=== PATIENT | male | born 1940 | race Caucasian/White ===

== ENCOUNTER 2019-01-15 16:22 | Inpatient (IN) | payer MEDICARE, BC ==
[2019-01-15] MEDS ORDERED: methylPREDNISolone Sodium Succinate 125 MG/2 ML SDV IVPUSH ONE (16:34)
[2019-01-15] MEDS ORDERED: Albuterol/Ipratropium 3.0-0.5 MG/3 ML Neb Soln NEB ONE (16:34)
[2019-01-15] MEDS ORDERED: Albuterol/Ipratropium 3.0-0.5 MG/3 ML Neb Soln ONE (16:37)
[2019-01-15] MEDS: Sodium Chloride 0.9% 10 ML Syringe FLUSH PRN ×2 (16:48→18:57)
[2019-01-15] MEDS ORDERED: Levofloxacin/Dextrose 5%-Water 750 MG in Premix Bag 1 BAG IV ONE (17:03)
[2019-01-15 17:07] LABS: ANION GAP 17.7; CHLORIDE,CL 100 mmol/L (101-111); SODIUM,NA 136 mmol/L (135-145)
--- NOTE | 2019-01-15 17:33 | EDM.PDOC ---
"Scribed by Julisa Contreras 01/15/19 1721 for Rebekah Roblero MD ED HPI GENERAL MEDICAL PROBLEM - General Chief Complaint: Respiratory Problem Stated Complaint: HARD TO BREATH AND EAT ON OXYGEN Time Seen by Provider: 01/15/19 16:34 Source of Information: Reports: Patient, RN, RN Notes Reviewed History Limitations: Reports: No Limitations - History of Present Illness INITIAL COMMENTS - FREE TEXT/NARRATIVE: Patient arrives to ER by POV with several days progressively worsening shortness of breath. He has history of COPD, home oxygen dependent. This afternoon he has become dyspneic. Denies fever, chills, chest pain or edema. Patient states his nebulizer treatments have not been helping today as usual. Onset: Gradual Duration: Getting Worse Location: Reports: Chest Quality: Reports: Ache Severity: Moderate Improves with: Reports: None Worsens with: Reports: None Associated Symptoms: Reports: No Other Symptoms - Related Data Allergies Allergy/AdvReac Type Severity Reaction Status Date / Time No Known Allergies Allergy Verified 01/15/19 17:07 Home Meds: Home Meds Albuterol [Proventil Neb Soln] 2.5 mg NEB Q4HR PRN 07/29/15 [History] Budesonide [Pulmicort] 0.5 mg NEB BID 07/29/15 [History] Folic Acid 1 mg PO DAILY 07/29/15 [History] Formoterol [Perforomist] 20 mcg NEB BID 07/29/15 [History] Roflumilast [Daliresp] 250 mcg PO DAILY 07/29/15 [History] Tiotropium [Spiriva HandiHaler] 18 mcg INH DAILY 07/29/15 [History] Ascorbate Calcium [Vitamin C] 500 mg PO DAILY 07/30/15 [History] Methotrexate 2.5 mg PO WEEKLY 07/30/15 [History] ED ROS GENERAL - Review of Systems Review Of Systems: Comprehensive ROS is negative, except as noted in HPI. ED EXAM, GENERAL - Physical Exam Exam: See Below Exam Limited By: No Limitations General Appearance: Alert, Anxious, Moderate Distress, Obese, Other ( chronically ill but nontoxic appearing) Eye Exam: Bilateral Eye: Normal Inspection Nose: Normal Inspection, Normal Mucosa, No Blood Throat/Mouth: Normal Inspection, Normal Lips, Normal Teeth, Normal Gums, Normal Oropharynx, Normal Voice, No Airway Compromise Head: Atraumatic, Normocephalic Neck: Normal Inspection, Supple, Non-Tender, Full Range of Motion Respiratory/Chest: Respiratory Distress (mild), Decreased Breath Sounds, Crackles, Wheezing, Accessory Muscle Use, Prolonged Expiration Cardiovascular: Regular Rate, Rhythm, No Edema, Tachycardia GI/Abdominal: Normal Bowel Sounds, Soft, Non-Tender, No Organomegaly, No Distention, No Abnormal Bruit, No Mass Back Exam: Normal Inspection Extremities: Normal Inspection, Normal Range of Motion, Non-Tender, Normal Capillary Refill, No Pedal Edema Neurological: Alert, Oriented, CN II-XII Intact, Normal Cognition, Normal Reflexes, No Motor/Sensory Deficits Psychiatric: Anxious Skin Exam: Warm, Dry, Intact, Normal Color, No Rash EKG INTERPRETATION EKG Date: 01/15/19 Time: 17:13 Rhythm: Other (sinus tachycardia) Rate (Beats/Min): 112 [place]: Normal P-Wave: Present QRS: Other (borderline repolarization abnormality) ST-T: Normal QT: Normal Comparison: NA - No Prior EKG Course - Vital Signs Last Recorded V/S: Last Vital Signs Temp 97.4 F 01/15/19 16:30 Pulse 115 H 01/15/19 16:30 Resp 38 H 01/15/19 16:30 BP 153/67 H 01/15/19 16:30 Pulse Ox 83 L 01/15/19 16:30 - Orders/Labs/Meds Orders: Active Orders 24 hr Category Date Time Status EKG 12 Lead [EKG Documentation Completion] [RC] STAT Care 01/15/19 16:37 Active Peripheral IV Care [RC] . DIRECTED Care 01/15/19 16:37 Active RT Aerosol Therapy [RC] ASDIRECTED Care 01/15/19 16:34 Active RT BiPAP/CPAP [RC] ASDIRECTED Care 01/15/19 16:36 Active Chest 1V Frontal [CR] Stat Exams 01/15/19 16:37 Taken ABG [BLOOD GAS ARTERIAL] [BG] Stat Lab 01/15/19 16:36 Ordered CULTURE BLOOD [BC] Stat Lab 01/15/19 16:38 Results CULTURE BLOOD [BC] Stat Lab 01/15/19 17:06 Received UA RFX TARIQ AND CULT IF INDIC [URIN] Stat Lab 01/15/19 16:37 Ordered Levofloxacin/Dextrose 5%-Water [Levaquin in D5W 750 MG/ Med 01/15/19 17:03 Active 150 ML] 750 mg Premix Bag 1 bag IV ONETIME Sodium Chloride 0.9% [Saline Flush] Med 01/15/19 16:37 Active 10 ml FLUSH ASDIRECTED PRN Blood Culture x2 Reflex Set [OM.PC] Stat Oth 01/15/19 16:37 Ordered Peripheral IV Insertion Adult [OM.PC] Stat Oth 01/15/19 16:37 Ordered Medication Orders Levofloxacin/Dextrose 750 mg/ (Premix) 150 mls @ 100 mls/hr IV ONETIME ONE Stop: 01/15/19 18:32 Last Admin: 01/15/19 17:26 Dose: 100 mls/hr Sodium Chloride (Saline Flush) 10 ml FLUSH ASDIRECTED PRN PRN Reason: Keep Vein Open Last Admin: 01/15/19 16:48 Dose: 10 ml Labs: Laboratory Tests 01/15/19 01/15/19 01/15/19 Range/Units 16:38 16:38 16:38 WBC 11.7 H (5.0-10.0) 10^3/uL RBC 4.03 L (4.6-6.2) 10^6/uL Hgb 13.3 L (14.0-18.0) g/dL Hct 39.9 L (40.0-54.0) % MCV 99.0 (80-100) fL MCH 33.0 (27.0-34.0) pg MCHC 33.3 (33.0-35.0) g/dL Plt Count 234 (150-450) 10^3/uL Neut % (Auto) 88.5 H (42.2-75.2) % Lymph % (Auto) 5.2 L (20.5-50.1) % [place] % (Auto) 6.0 (2-8) % Eos % (Auto) 0.1 L (1.0-3.0) % Baso % (Auto) 0.2 (0.0-1.0) % Sodium 136 (135-145) mmol/L Potassium 3.7 (3.6-5.0) mmol/L Chloride 100 L (101-111) mmol/L Carbon Dioxide 22.0 (21.0-31.0) mmol/L Anion Gap 17.7 BUN 14 (7-18) mg/dL Creatinine 1.0 (0.6-1.3) mg/dL Est Cr Clr Drug Dosing 50.58 mL/min Estimated GFR (MDRD) > 60 BUN/Creatinine Ratio 14.00 Glucose 129 H (74-105) mg/dL Lactic Acid 1.8 (0.5-2.2) mmol/L Calcium 9.2 (8.4-10.2) mg/dl Total Bilirubin 1.4 H (0.2-1.0) mg/dL AST 33 (10-42) IU/L ALT 33 (10-60) IU/L Alkaline Phosphatase 100 (42-121) IU/L Troponin I < 0.02 (0.00-0.02) ng/ml B-Natriuretic Peptide 40 (0-100) pg/ml Total Protein 8.4 H (6.7-8.2) g/dl Albumin 3.9 (3.2-5.5) g/dl Globulin 4.5 Albumin/Globulin Ratio 0.87 Meds: Medications Generic Name Dose Route Start Last Admin Trade Name Freq PRN Reason Stop Dose Admin Levofloxacin/Dextrose 750 mg/ 150 mls @ 100 mls/hr 01/15/19 17:03 01/15/19 17 :26 Premix IV 01/15/19 18:32 100 mls/hr ONETIME ONE Administration Sodium Chloride 10 ml 01/15/19 16:37 01/15/19 16:48 Saline Flush FLUSH 10 ml ASDIRECTED PRN Administration Keep Vein Open Discontinued Medications Generic Name Dose Route Start Last Admin Trade Name Freq PRN Reason Stop Dose Admin Albuterol/Ipratropium 3 ml 01/15/19 16:34 01/15/19 16:48 Duoneb 3.0-0.5 Mg/3 Ml NEB 01/15/19 16:35 3 ml ONETIME ONE Administration Albuterol/Ipratropium Confirm 01/15/19 16:37 01/15/19 16:48 Duoneb 3.0-0.5 Mg/3 Ml Administered 01/15/19 16:38 Not Given Dose 3 ml .ROUTE .STK-MED ONE Methylprednisolone Sodium Succinate 125 mg 01/15/19 16:34 01/15/19 16:48 Solu-Medrol IVPUSH 01/15/19 16:35 125 mg ONETIME ONE Administration - Radiology Interpretation Free Text/Narrative:: [facility] [place] [facility] Final Radiology Report Call: [phone] assistance Online chat: [email or web address] Name: LYNN KESSLER Age: 78Years M Date: 01/15/2019 SSN: -- : [id number] Study: XR CHEST 1 VIEW FRONTAL Requesting Physician: REBEKAH ROBLERO Images: 1 Addl Studies: Provided Clinical History: Contrast: Contrast Medium: Contrast Amount: Contrast Method: Page 1 of 2 PROCEDURE INFORMATION: Exam: XR Chest, 1 View Exam date and time: 01/15/2019 4:54 PM Age: 78 years old Clinical history: Dyspnea TECHNIQUE: Imaging protocol: XR of the chest Views: 1 view. COMPARISON: No relevant prior studies available. FINDINGS: Lungs: Normal pulmonary expansion. Pulmonary vasculature grossly normal. Alveolar opacities are identified in the medial right lung base and in the lingula of the left upper lobe, consistent with multifocal infiltrate versus atelectasis. Mild hyperexpansion and apical hyperlucency suspicious for COPD. Pleural space: No pleural effusion. No pneumothorax. Heart/Mediastinum: Heart size normal. No tracheal/mediastinal shift. Vasculature: Mild aortic ectasia. Bones/joints: No acute osseous abnormalities are identified. IMPRESSION: 1. Alveolar opacities in the medial right lung base and in the left upper lobe lingula concerning for multifocal infiltrate versus atelectasis. 2. Suspect underlying COPD. Thank you for allowing us to participate in the care of your patient. LYNN KESSLER | Final Radiology Report CONFIDENTIALITY STATEMENT This report is intended only for use by the referring physician, and only in accordance with law. If you received this in error, call [phone]. Page 2 of 2 Dictated and Authenticated by: Ilya Lin MD 01/15/2019 5:18 PM Central Time ([place] & [place]) Departure - Departure Time of Disposition: 17:32 (admitted to Dr. Flores) Disposition: Admitted As Inpatient 68 Condition: Fair, Serious Clinical Impression: Acute exacerbation of chronic obstructive pulmonary disease (COPD) Pneumonia Qualifiers: Pneumonia type: due to unspecified organism Laterality: bilateral Lung location : unspecified part of lung Qualified Code(s): J18.9 - Pneumonia, unspecified organism Acute on chronic respiratory failure Qualifiers: Respiratory failure complication: hypoxia Qualified Code(s): J96.21 - Acute and chronic respiratory failure with hypoxia - Discharge Information *PRESCRIPTION DRUG MONITORING PROGRAM REVIEWED*: Not Applicable *COPY OF PRESCRIPTION DRUG MONITORING REPORT IN PATIENT DIANE: Not Applicable Forms: ED Department Discharge - My Orders Last 24 Hours: My Active Orders 01/15/19 16:34 RT Aerosol Therapy [RC] ASDIRECTED 01/15/19 16:36 RT BiPAP/CPAP [RC] ASDIRECTED ABG [BLOOD GAS ARTERIAL] [BG] Stat 01/15/19 16:37 EKG 12 Lead [EKG Documentation Completion] [RC] STAT Peripheral IV Care [RC] . DIRECTED Chest 1V Frontal [CR] Stat UA RFX TARIQ AND CULT IF INDIC [URIN] Stat Sodium Chloride 0.9% [Saline Flush] 10 ml FLUSH ASDIRECTED PRN Blood Culture x2 Reflex Set [OM.PC] Stat Peripheral IV Insertion Adult [OM.PC] Stat 01/15/19 16:38 CULTURE BLOOD [BC] Stat 01/15/19 17:03 Levofloxacin/Dextrose 5%-Water [Levaquin in D5W 750 MG/150 ML] 750 mg Premix Bag 1 bag IV ONETIME 01/15/19 17:06 CULTURE BLOOD [BC] Stat - Assessment/Plan Last 24 Hours: My Active Orders 01/15/19 16:34 RT Aerosol Therapy [RC] ASDIRECTED 01/15/19 16:36 RT BiPAP/CPAP [RC] ASDIRECTED ABG [BLOOD GAS ARTERIAL] [BG] Stat 01/15/19 16:37 EKG 12 Lead [EKG Documentation Completion] [RC] STAT Peripheral IV Care [RC] . DIRECTED Chest 1V Frontal [CR] Stat UA RFX TARIQ AND CULT IF INDIC [URIN] Stat Sodium Chloride 0.9% [Saline Flush] 10 ml FLUSH ASDIRECTED PRN Blood Culture x2 Reflex Set [OM.PC] Stat Peripheral IV Insertion Adult [OM.PC] Stat 01/15/19 16:38 CULTURE BLOOD [BC] Stat 01/15/19 17:03 Levofloxacin/Dextrose 5%-Water [Levaquin in D5W 750 MG/150 ML] 750 mg Premix Bag 1 bag IV ONETIME 01/15/19 17:06 CULTURE BLOOD [BC] Stat I have read and agree with the documentation that has been completed regarding this visit. By signing this record, I attest that the documentation was completed in my physical presence and is an accurate record of the encounter."
[2019-01-15 17:35] LABS: BASE EXCESS ARTERIAL -1 mmol/L ((-2)-(+3)); BICARBONATE,ARTERIAL 21.9 mmol/L (22-26); O2 DELIVERY DEVICE BIPAP; O2 SATURATION ARTERIAL 99 % (95-100); PCO2 ARTERIAL 33 mmHg (35-45); PO2 ARTERIAL 109 mmHg (70-100)
[2019-01-15] MEDS ORDERED: Docusate Sodium 100 MG Cap PO PRN (18:22)
[2019-01-15] MEDS ORDERED: Ondansetron 4 MG Tab.DIS PO PRN (18:22)
--- NOTE | 2019-01-15 18:33 | PCM.HP ---
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 He presented with increasing shortness of breath associated with fever, nonproductive cough started 2 days prior to admission. No chest pain. No abdominal pain. No leg swelling. - Related Data Allergies/Adverse Reactions: Allergies Allergy/AdvReac Type Severity Reaction Status Date / Time No Known Allergies Allergy Verified 01/15/19 17:07 Home Medications: Home Meds Albuterol [Proventil Neb Soln] 2.5 mg NEB Q4HR PRN 07/29/15 [History] Budesonide [Pulmicort] 0.5 mg NEB BID 07/29/15 [History] Formoterol [Perforomist] 20 mcg NEB BID 07/29/15 [History] Ascorbate Calcium [Vitamin C] 500 mg PO DAILY 07/30/15 [History] Methotrexate 2.5 mg PO WEEKLY 07/30/15 [History] Albuterol [Ventolin HFA] 2 puff .XX Q4H 01/15/19 [History] Finasteride [Proscar] 5 mg PO .SUPPER 01/15/19 [History] Tamsulosin [Tamsulosin 24 Hr] 0.4 mg PO .SUPPER 01/15/19 [History] Umeclidinium [place] [Incruse Ellipta*] 1 puff INH DAILY 01/15/19 [History] Zinc Gluconate [Zinc] 50 mg PO DAILY 01/15/19 [History] Past Medical History Respiratory History: Reports: COPD Social & Family History - Tobacco Use Smoking Status *Q: Former Smoker Used Tobacco, but Quit: Yes Month/Year Tobacco Last Used: 2008 H&P Review of Systems - Review of Systems: Review Of Systems: See Below General: Reports: Fever, Chills, Malaise, Weakness Pulmonary: Reports: Shortness of Breath, Wheezing, Cough. Denies: Pleuritic Chest Pain, Sputum, Hemoptysis Cardiovascular: Denies: Chest Pain, Edema Gastrointestinal: Denies: Abdominal Pain Psychiatric: Denies: Confusion Exam - Exam Exam: See Below - Vital Signs Vital Signs: Last Vital Signs Temp 38.5 C H 01/15/19 18:06 Pulse 116 H 01/15/19 18:06 Resp 36 H 01/15/19 18:06 BP 156/66 H 01/15/19 18:06 Pulse Ox 99 01/15/19 18:06 Weight: 80.104 kg - Exam General: Alert, Oriented Neck: Supple Lungs: Wheezing. No: Normal Respiratory Effort (Increased respiratory rate) Cardiovascular: Regular Rate, Regular Rhythm GI/Abdominal Exam: Normal Bowel Sounds, Soft, Non-Tender Extremities: No Pedal Edema Skin: Warm Neurological: Cranial Nerves Intact Neuro Extensive - Mental Status: Alert, Oriented x3, Normal Mood/Affect - Patient Data Lab Results Last 24 hrs: Laboratory Results - last 24 hr 01/15/19 01/15/19 01/15/19 Range/Units 16:38 16:38 16:38 WBC 11.7 H (5.0-10.0) 10^3/uL RBC 4.03 L (4.6-6.2) 10^6/uL Hgb 13.3 L (14.0-18.0) g/dL Hct 39.9 L (40.0-54.0) % MCV 99.0 (80-100) fL MCH 33.0 (27.0-34.0) pg MCHC 33.3 (33.0-35.0) g/dL Plt Count 234 (150-450) 10^3/uL Neut % (Auto) 88.5 H (42.2-75.2) % Lymph % (Auto) 5.2 L (20.5-50.1) % [place] % (Auto) 6.0 (2-8) % Eos % (Auto) 0.1 L (1.0-3.0) % Baso % (Auto) 0.2 (0.0-1.0) % ABG pH (7.35-7.45) ABG pCO2 (35-45) mmHg ABG pO2 (70-100) mmHg ABG HCO3 (22-26) mmol/L ABG O2 Saturation (95-100) % ABG Base Excess ((-2)-(+3)) mmol/L O2 Delivery Device Sodium 136 (135-145) mmol/L Potassium 3.7 (3.6-5.0) mmol/L Chloride 100 L (101-111) mmol/L Carbon Dioxide 22.0 (21.0-31.0) mmol/L Anion Gap 17.7 BUN 14 (7-18) mg/dL Creatinine 1.0 (0.6-1.3) mg/dL Est Cr Clr Drug Dosing 50.58 mL/min Estimated GFR (MDRD) > 60 BUN/Creatinine Ratio 14.00 Glucose 129 H (74-105) mg/dL Lactic Acid 1.8 (0.5-2.2) mmol/L Calcium 9.2 (8.4-10.2) mg/dl Total Bilirubin 1.4 H (0.2-1.0) mg/dL AST 33 (10-42) IU/L ALT 33 (10-60) IU/L Alkaline Phosphatase 100 (42-121) IU/L Troponin I < 0.02 (0.00-0.02) ng/ml B-Natriuretic Peptide 40 (0-100) pg/ml Total Protein 8.4 H (6.7-8.2) g/dl Albumin 3.9 (3.2-5.5) g/dl Globulin 4.5 Albumin/Globulin Ratio 0.87 01/15/19 Range/Units 17:30 WBC (5.0-10.0) 10^3/uL RBC (4.6-6.2) 10^6/uL Hgb (14.0-18.0) g/dL Hct (40.0-54.0) % MCV (80-100) fL MCH (27.0-34.0) pg MCHC (33.0-35.0) g/dL Plt Count (150-450) 10^3/uL Neut % (Auto) (42.2-75.2) % Lymph % (Auto) (20.5-50.1) % [place] % (Auto) (2-8) % Eos % (Auto) (1.0-3.0) % Baso % (Auto) (0.0-1.0) % ABG pH 7.43 (7.35-7.45) ABG pCO2 33 L (35-45) mmHg ABG pO2 109 H (70-100) mmHg ABG HCO3 21.9 L (22-26) mmol/L ABG O2 Saturation 99 (95-100) % ABG Base Excess -1 ((-2)-(+3)) mmol/L O2 Delivery Device Bipap Sodium (135-145) mmol/L Potassium (3.6-5.0) mmol/L Chloride (101-111) mmol/L Carbon Dioxide (21.0-31.0) mmol/L Anion Gap BUN (7-18) mg/dL Creatinine (0.6-1.3) mg/dL Est Cr Clr Drug Dosing mL/min Estimated GFR (MDRD) BUN/Creatinine Ratio Glucose (74-105) mg/dL Lactic Acid (0.5-2.2) mmol/L Calcium (8.4-10.2) mg/dl Total Bilirubin (0.2-1.0) mg/dL AST (10-42) IU/L ALT (10-60) IU/L Alkaline Phosphatase (42-121) IU/L Troponin I (0.00-0.02) ng/ml B-Natriuretic Peptide (0-100) pg/ml Total Protein (6.7-8.2) g/dl Albumin (3.2-5.5) g/dl Globulin Albumin/Globulin Ratio Result Diagrams: 01/15/19 16:38 01/15/19 16:38 Dave Results Last 24 hrs: Microbiology 01/15/19 16:38 Anaerobic Blood Culture - Final Blood - Venous - Problem List (1) Acute exacerbation of chronic obstructive pulmonary disease (COPD) SNOMED Code(s): 758315037 ICD Code: J44.1 - CHRONIC OBSTRUCTIVE PULMONARY DISEASE W (ACUTE) EXACERBATION Status: Acute Current Visit: No (2) Acute on chronic respiratory failure SNOMED Code(s): 34089011 ICD Code: J96.20 - ACUTE AND CHR RESP FAILURE, UNSP W HYPOXIA OR HYPERCAPNIA Status: Acute Current Visit: No Qualifiers: Respiratory failure complication: hypoxia Qualified Code(s): J96.21 - Acute and chronic respiratory failure with hypoxia (3) Pneumonia SNOMED Code(s): 869406333 ICD Code: J18.9 - PNEUMONIA, UNSPECIFIED ORGANISM Status: Acute Current Visit: No Qualifiers: Pneumonia type: due to unspecified organism Laterality: bilateral Lung location: unspecified part of lung Qualified Code(s): J18.9 - Pneumonia, unspecified organism Problem List Initiated/Reviewed/Updated: Yes Orders Last 24hrs: Active Orders 24 hr Category Date Time Status Admission Diagnosis [ADT] Routine ADT 01/15/19 17:31 Ordered Admission Status [Patient Status] [ADT] Routine ADT 01/15/19 17:31 Active Antiembolic Devices [RC] PER UNIT ROUTINE Care 01/15/19 18:23 Ordered EKG 12 Lead [EKG Documentation Completion] [RC] STAT Care 01/15/19 16:37 Active Oxygen Therapy [RC] PRN Care 01/15/19 18:22 Ordered Peripheral IV Care [RC] . DIRECTED Care 01/15/19 16:37 Active RT Aerosol Therapy [RC] ASDIRECTED Care 01/15/19 16:34 Active RT Aerosol Therapy [RC] ASDIRECTED Care 01/15/19 18:16 Ordered RT Aerosol Therapy [RC] ASDIRECTED Care 01/15/19 18:19 Ordered RT Aerosol Therapy [RC] ASDIRECTED Care 01/15/19 18:19 Ordered RT BiPAP/CPAP [RC] ASDIRECTED Care 01/15/19 16:36 Active Up With Assistance [RC] ASDIRECTED Care 01/15/19 18:22 Ordered VTE/DVT Education [RC] PER UNIT ROUTINE Care 01/15/19 18:22 Ordered Vital Signs [RC] Q4H Care 01/15/19 18:22 Ordered Regular Diet [DIET] Diet 01/15/19 Breakfast Ordered Chest 1V Frontal [CR] Stat Exams 01/15/19 16:37 Taken BASIC METABOLIC PANEL,BMP [CHEM] AM Lab 01/16/19 05:15 Ordered CBC WITH AUTO DIFF [HEME] AM Lab 01/16/19 05:15 Ordered CULTURE BLOOD [BC] Stat Lab 01/15/19 16:38 Results CULTURE BLOOD [BC] Stat Lab 01/15/19 17:06 Received CULTURE SPUTUM + SMEAR [RM] Routine Lab 01/15/19 18:15 Ordered UA RFX DAVE AND CULT IF INDIC [URIN] Stat Lab 01/15/19 16:37 Ordered Acetaminophen [Tylenol] Med 01/15/19 18:22 Ordered 650 mg PO Q4H PRN Albuterol/Ipratropium [DuoNeb 3.0-0.5 MG/3 ML] Med 01/15/19 18:16 Ordered 3 ml NEB Q2H PRN Albuterol/Ipratropium [DuoNeb 3.0-0.5 MG/3 ML] Med 01/16/19 01:00 Ordered 3 ml NEB Q6HRRT Budesonide [Pulmicort] Med 01/16/19 07:00 Ordered 0.5 mg NEB BIDRT Docusate Sodium [Colace] Med 01/15/19 18:22 Ordered 100 mg PO BID PRN Folic Acid Med 01/16/19 09:00 Ordered 1 mg PO DAILY Heparin Sodium Med 01/15/19 22:00 Ordered 5,000 units SUBCUT Q8HR Levofloxacin/Dextrose 5%-Water [Levaquin in D5W 750 MG/ Med 01/15/19 17:03 Active 150 ML] 750 mg Premix Bag 1 bag IV ONETIME Levofloxacin/Dextrose 5%-Water [Levaquin in D5W 750 MG/ Med 01/16/19 16:00 Ordered 150 ML] 750 mg Premix Bag 1 bag IV Q24H Ondansetron [Zofran ODT] Med 01/15/19 18:22 Ordered 4 mg PO Q4H PRN Roflumilast [Daliresp] Med 01/16/19 09:00 Ordered 250 mcg PO DAILY Sodium Chloride 0.9% [Saline Flush] Med 01/15/19 16:37 Active 10 ml FLUSH ASDIRECTED PRN Sodium Chloride 0.9% [Saline Flush] Med 01/15/19 18:22 Ordered 10 ml FLUSH ASDIRECTED PRN Zolpidem [Ambien] Med 01/15/19 18:22 Ordered 5 mg PO BEDTIME PRN methylPREDNISolone Sod Succ [Solu-MEDROL] Med 01/15/19 22:00 Ordered 40 mg IVPUSH Q8H Antiembolic Hose [OM.PC] Per Unit Routine Oth 01/15/19 18:22 Ordered Blood Culture x2 Reflex Set [OM.PC] Stat Oth 01/15/19 16:37 Ordered Peripheral IV Insertion Adult [OM.PC] Stat Oth 01/15/19 16:37 Ordered Saline Lock Insert [OM.PC] Routine Oth 01/15/19 18:22 Ordered Resuscitation Status Routine Resus Stat 01/15/19 18:22 Ordered Medication Orders Acetaminophen (Tylenol) 650 mg PO Q4H PRN PRN Reason: Pain (Mild 1-3)/fever Albuterol/Ipratropium (Duoneb 3.0-0.5 Mg/3 Ml) 3 ml NEB Q2H PRN PRN Reason: sob Albuterol/Ipratropium (Duoneb 3.0-0.5 Mg/3 Ml) 3 ml NEB Q6HRRT ANNA Budesonide (Pulmicort) 0.5 mg NEB BIDRT ANNA Docusate Sodium (Colace) 100 mg PO BID PRN PRN Reason: Constipation Folic Acid (Folic Acid) 1 mg PO DAILY ANNA Heparin Sodium (Porcine) (Heparin Sodium) 5,000 units SUBCUT Q8HR ANNA Levofloxacin/Dextrose 750 mg/ (Premix) 150 mls @ 100 mls/hr IV ONETIME ONE Stop: 01/15/19 18:32 Last Admin: 01/15/19 17:26 Dose: 100 mls/hr Levofloxacin/Dextrose 750 mg/ (Premix) 150 mls @ 100 mls/hr IV Q24H ANNA Methylprednisolone Sodium Succinate (Solu-Medrol) 40 mg IVPUSH Q8H [facility] Non-Formulary Medication (Roflumilast [Daliresp]) 250 mcg PO DAILY ANNA Ondansetron HCl (Zofran Odt) 4 mg PO Q4H PRN PRN Reason: nausea, able to take PO Sodium Chloride (Saline Flush) 10 ml FLUSH ASDIRECTED PRN PRN Reason: Keep Vein Open Last Admin: 01/15/19 16:48 Dose: 10 ml Sodium Chloride (Saline Flush) 10 ml FLUSH ASDIRECTED PRN PRN Reason: Keep Vein Open Zolpidem Tartrate (Ambien) 5 mg PO BEDTIME PRN PRN Reason: Sleep Assessment/Plan Comment:: 78-year-old gentleman with a history of COPD, home oxygen use at night. Presented with fever, increasing shortness of breath. Acute on chronic hypoxemic respiratory failure On presentation to the emergency room the patient was hypoxemic, started on BiPAP. ABG showed no CO2 retention Oxygen saturation improved We'll try to wean off to nasal cannula oxygen Supplement oxygen as needed Acute COPD exacerbation We'll treat with IV Solu-Medrol and Pulmicort DuoNeb scheduled and as needed Acute community-acquired pneumonia Obtain sputum culture Blood culture obtained Treat empirically with levofloxacin DVT prophylaxis with subcutaneous heparin
[2019-01-15] MEDS: Tamsulosin 0.4 MG Cap.ER PO SCH (19:05)
[2019-01-15] MEDS: Finasteride 5 MG Tab PO SCH (19:08)
[2019-01-15] MEDS: Heparin Sodium 5,000 Units/ML Vial SUBCUT SCH (21:46)
[2019-01-15] MEDS: TOFACITINIB CITRATE 11 MG PO SCH (23:16)
[2019-01-16] MEDS: methylPREDNISolone Sodium Succinate 40 MG/1 ML SDV IVPUSH SCH ×3 (00:16→17:19)
[2019-01-16] MEDS: Albuterol/Ipratropium 3.0-0.5 MG/3 ML Neb Soln NEB SCH ×4 (00:17→18:06)
[2019-01-16] MEDS: Heparin Sodium 5,000 Units/ML Vial SUBCUT SCH ×3 (05:54→22:08)
[2019-01-16 06:50] LABS: ANION GAP 15.1; CHLORIDE,CL 101 mmol/L (101-111); SODIUM,NA 137 mmol/L (135-145)
[2019-01-16] MEDS: Budesonide 0.5 MG/2 ML Neb Susp NEB SCH ×2 (07:20→18:07)
[2019-01-16] MEDS ORDERED: Patient's Own Medication 1 Each PO SCH (09:00)
[2019-01-16] MEDS: Folic Acid 1 MG Tab PO SCH (09:22)
--- NOTE | 2019-01-16 10:25 | PCM.PN ---
- General Info Date of Service: 01/16/19 Admission Dx/Problem (Free Text): Admission Diagnosis/Problem Admission Diagnosis/Problem Exacerbation of chronic obstructive pulmonary disease Subjective Update: Has remained on BiPAP. Feels the breathing is better. Was able to take off the BiPAP for breakfast. No associated chest pain. Symptoms started 2- 3 days prior to admission. No abdominal pain. Functional Status: Reports: Tolerating Diet - Review of Systems General: Denies: Fever Pulmonary: Reports: Shortness of Breath (Improved), Wheezing Cardiovascular: Denies: Chest Pain, Edema Psychiatric: Denies: Confusion - Patient Data Vitals - Most Recent: Last Vital Signs Temp 36.9 C 01/16/19 08:23 Pulse 80 01/16/19 08:23 Resp 20 01/16/19 08:23 BP 136/76 01/16/19 08:23 Pulse Ox 100 01/16/19 08:23 Weight - Most Recent: 78.29 kg I&O - Last 24 Hours: Intake & Output 01/15/19 01/16/19 01/16/19 22:59 06:59 14:59 Intake Total 780 Output Total 300 Balance 780 -300 Lab Results Last 24 Hours: Laboratory Results - last 24 hr 01/15/19 01/15/19 01/15/19 Range/Units 16:38 16:38 16:38 WBC 11.7 H (5.0-10.0) 10^3/uL RBC 4.03 L (4.6-6.2) 10^6/uL Hgb 13.3 L (14.0-18.0) g/dL Hct 39.9 L (40.0-54.0) % MCV 99.0 (80-100) fL MCH 33.0 (27.0-34.0) pg MCHC 33.3 (33.0-35.0) g/dL Plt Count 234 (150-450) 10^3/uL Neut % (Auto) 88.5 H (42.2-75.2) % Lymph % (Auto) 5.2 L (20.5-50.1) % [place] % (Auto) 6.0 (2-8) % Eos % (Auto) 0.1 L (1.0-3.0) % Baso % (Auto) 0.2 (0.0-1.0) % ABG pH (7.35-7.45) ABG pCO2 (35-45) mmHg ABG pO2 (70-100) mmHg ABG HCO3 (22-26) mmol/L ABG O2 Saturation (95-100) % ABG Base Excess ((-2)-(+3)) mmol/L O2 Delivery Device Sodium 136 (135-145) mmol/L Potassium 3.7 (3.6-5.0) mmol/L Chloride 100 L (101-111) mmol/L Carbon Dioxide 22.0 (21.0-31.0) mmol/L Anion Gap 17.7 BUN 14 (7-18) mg/dL Creatinine 1.0 (0.6-1.3) mg/dL Est Cr Clr Drug Dosing 50.58 mL/min Estimated GFR (MDRD) > 60 BUN/Creatinine Ratio 14.00 Glucose 129 H (74-105) mg/dL Lactic Acid 1.8 (0.5-2.2) mmol/L Calcium 9.2 (8.4-10.2) mg/dl Total Bilirubin 1.4 H (0.2-1.0) mg/dL AST 33 (10-42) IU/L ALT 33 (10-60) IU/L Alkaline Phosphatase 100 (42-121) IU/L Troponin I < 0.02 (0.00-0.02) ng/ml B-Natriuretic Peptide 40 (0-100) pg/ml Total Protein 8.4 H (6.7-8.2) g/dl Albumin 3.9 (3.2-5.5) g/dl Globulin 4.5 Albumin/Globulin Ratio 0.87 Urine Color (YELLOW) Urine Appearance (CLEAR) Urine pH (5.0-9.0) Ur Specific [place] (1.005-1.030) Urine Protein (NEGATIVE) Urine Glucose (UA) (NEGATIVE) Urine Ketones (NEGATIVE) Urine Occult Blood (NEGATIVE) Urine Nitrite (NEGATIVE) Urine Bilirubin (NEGATIVE) Urine Urobilinogen (0.2-1.0) mg/dL Ur Leukocyte Esterase (NEGATIVE) Urine RBC /HPF Urine WBC (0-5/HPF) /HPF Ur Epithelial Cells (NOT SEEN) /HPF Amorphous Sediment (NOT SEEN) /HPF Urine Bacteria (0-FEW/HPF) /HPF Granular Casts (NOT SEEN) /LPF Urine Mucus (NOT SEEN) /LPF 12/08/19 12/08/19 12/09/19 Range/Units 17:30 23:20 05:28 WBC 9.7 (5.0-10.0) 10^3/uL RBC 3.85 L (4.6-6.2) 10^6/uL Hgb 12.6 L (14.0-18.0) g/dL Hct 38.4 L (40.0-54.0) % MCV 99.7 (80-100) fL MCH 32.7 (27.0-34.0) pg MCHC 32.8 L (33.0-35.0) g/dL Plt Count 252 (150-450) 10^3/uL Neut % (Auto) 88.6 H (42.2-75.2) % Lymph % (Auto) 9.0 L (20.5-50.1) % [place] % (Auto) 2.3 (2-8) % Eos % (Auto) 0.0 L (1.0-3.0) % Baso % (Auto) 0.1 (0.0-1.0) % ABG pH 7.43 (7.35-7.45) ABG pCO2 33 L (35-45) mmHg ABG pO2 109 H (70-100) mmHg ABG HCO3 21.9 L (22-26) mmol/L ABG O2 Saturation 99 (95-100) % ABG Base Excess -1 ((-2)-(+3)) mmol/L O2 Delivery Device Bipap Sodium (135-145) mmol/L Potassium (3.6-5.0) mmol/L Chloride (101-111) mmol/L Carbon Dioxide (21.0-31.0) mmol/L Anion Gap BUN (7-18) mg/dL Creatinine (0.6-1.3) mg/dL Est Cr Clr Drug Dosing mL/min Estimated GFR (MDRD) BUN/Creatinine Ratio Glucose (74-105) mg/dL Lactic Acid (0.5-2.2) mmol/L Calcium (8.4-10.2) mg/dl Total Bilirubin (0.2-1.0) mg/dL AST (10-42) IU/L ALT (10-60) IU/L Alkaline Phosphatase (42-121) IU/L Troponin I (0.00-0.02) ng/ml B-Natriuretic Peptide (0-100) pg/ml Total Protein (6.7-8.2) g/dl Albumin (3.2-5.5) g/dl Globulin Albumin/Globulin Ratio Urine Color Yellow (YELLOW) Urine Appearance Clear (CLEAR) Urine pH 5.5 (5.0-9.0) Ur Specific [place] 1.020 (1.005-1.030) Urine Protein 100 H (NEGATIVE) Urine Glucose (UA) Negative (NEGATIVE) Urine Ketones 15 H (NEGATIVE) Urine Occult Blood Negative (NEGATIVE) Urine Nitrite Negative (NEGATIVE) Urine Bilirubin Negative (NEGATIVE) Urine Urobilinogen 1.0 (0.2-1.0) mg/dL Ur Leukocyte Esterase Negative (NEGATIVE) Urine RBC 0-5 /HPF Urine WBC 0-5 (0-5/HPF) /HPF Ur Epithelial Cells Occasional (NOT SEEN) /HPF Amorphous Sediment Few (NOT SEEN) /HPF Urine Bacteria Moderate H (0-FEW/HPF) /HPF Granular Casts Occasional (NOT SEEN) /LPF Urine Mucus Few H (NOT SEEN) /LPF 01/16/19 Range/Units 05:28 WBC (5.0-10.0) 10^3/uL RBC (4.6-6.2) 10^6/uL Hgb (14.0-18.0) g/dL Hct (40.0-54.0) % MCV (80-100) fL MCH (27.0-34.0) pg MCHC (33.0-35.0) g/dL Plt Count (150-450) 10^3/uL Neut % (Auto) (42.2-75.2) % Lymph % (Auto) (20.5-50.1) % [place] % (Auto) (2-8) % Eos % (Auto) (1.0-3.0) % Baso % (Auto) (0.0-1.0) % ABG pH (7.35-7.45) ABG pCO2 (35-45) mmHg ABG pO2 (70-100) mmHg ABG HCO3 (22-26) mmol/L ABG O2 Saturation (95-100) % ABG Base Excess ((-2)-(+3)) mmol/L O2 Delivery Device Sodium 137 (135-145) mmol/L Potassium 4.1 (3.6-5.0) mmol/L Chloride 101 (101-111) mmol/L Carbon Dioxide 25.0 (21.0-31.0) mmol/L Anion Gap 15.1 BUN 17 (7-18) mg/dL Creatinine 1.0 (0.6-1.3) mg/dL Est Cr Clr Drug Dosing 50.58 mL/min Estimated GFR (MDRD) > 60 BUN/Creatinine Ratio Glucose 178 H (74-105) mg/dL Lactic Acid (0.5-2.2) mmol/L Calcium 9.3 (8.4-10.2) mg/dl Total Bilirubin (0.2-1.0) mg/dL AST (10-42) IU/L ALT (10-60) IU/L Alkaline Phosphatase (42-121) IU/L Troponin I (0.00-0.02) ng/ml B-Natriuretic Peptide (0-100) pg/ml Total Protein (6.7-8.2) g/dl Albumin (3.2-5.5) g/dl Globulin Albumin/Globulin Ratio Urine Color (YELLOW) Urine Appearance (CLEAR) Urine pH (5.0-9.0) Ur Specific [place] (1.005-1.030) Urine Protein (NEGATIVE) Urine Glucose (UA) (NEGATIVE) Urine Ketones (NEGATIVE) Urine Occult Blood (NEGATIVE) Urine Nitrite (NEGATIVE) Urine Bilirubin (NEGATIVE) Urine Urobilinogen (0.2-1.0) mg/dL Ur Leukocyte Esterase (NEGATIVE) Urine RBC /HPF Urine WBC (0-5/HPF) /HPF Ur Epithelial Cells (NOT SEEN) /HPF Amorphous Sediment (NOT SEEN) /HPF Urine Bacteria (0-FEW/HPF) /HPF Granular Casts (NOT SEEN) /LPF Urine Mucus (NOT SEEN) /LPF Dave Results Last 24 Hours: Microbiology 01/15/19 16:38 Anaerobic Blood Culture - Final Blood - Venous Med Orders - Current: Current Medications Acetaminophen (Tylenol) 650 mg PO Q4H PRN PRN Reason: Pain (Mild 1-3)/fever Albuterol/Ipratropium (Duoneb 3.0-0.5 Mg/3 Ml) 3 ml NEB Q2H PRN PRN Reason: sob Albuterol/Ipratropium (Duoneb 3.0-0.5 Mg/3 Ml) 3 ml NEB Q6HRRT [facility] Last Admin: 01/16/19 07:20 Dose: 3 ml Budesonide (Pulmicort) 0.5 mg NEB BIDRT [facility] Last Admin: 01/16/19 07:20 Dose: 0.5 mg Docusate Sodium (Colace) 100 mg PO BID PRN PRN Reason: Constipation [facility] Last Admin: 01/15/19 19:08 Dose: 5 mg Folic Acid (Folic Acid) 1 mg PO DAILY [facility] Last Admin: 01/16/19 09:22 Dose: 1 mg Heparin Sodium (Porcine) (Heparin Sodium) 5,000 units SUBCUT Q8HR [facility] Last Admin: 01/16/19 05:54 Dose: 5,000 units Levofloxacin/Dextrose 750 mg/ (Premix) 150 mls @ 100 mls/hr IV Q24H [facility] Methylprednisolone Sodium Succinate (Solu-Medrol) 40 mg IVPUSH Q8H [facility] Last Admin: 01/16/19 09:21 Dose: 40 mg (Roflumilast [ Daliresp] 500 Mcg) *Own Med 500 mcg PO DAILY [facility] Last Admin: 01/16/19 09:58 Dose: 500 mcg (Tofacitinib Citrate [Xeljanz Xr] 11 Mg) Own Med 11 mg PO BEDTIME [facility] Last Admin: 01/15/19 23:16 Dose: 11 mg Ondansetron HCl (Zofran Odt) 4 mg PO Q4H PRN PRN Reason: nausea, able to take PO Patient Own Medication (Ptom) each PO DAILY [facility] Sodium Chloride (Saline Flush) 10 ml FLUSH ASDIRECTED PRN PRN Reason: Keep Vein Open Last Admin: 01/15/19 18:57 Dose: 10 ml Sodium Chloride (Saline Flush) 10 ml FLUSH ASDIRECTED PRN PRN Reason: Keep Vein Open Tamsulosin HCl (Flomax) 0.4 mg PO ACDINNER [facility] Last Admin: 01/15/19 19:05 Dose: 0.4 mg Zolpidem Tartrate (Ambien) 5 mg PO BEDTIME PRN PRN Reason: Sleep Discontinued Medications Albuterol/Ipratropium (Duoneb 3.0-0.5 Mg/3 Ml) 3 ml NEB ONETIME ONE Stop: 01/15/19 16:35 Last Admin: 01/15/19 16:48 Dose: 3 ml Albuterol/Ipratropium (Duoneb 3.0-0.5 Mg/3 Ml) Confirm Administered Dose 3 ml .ROUTE .STK-MED ONE Stop: 01/15/19 16:38 Last Admin: 01/15/19 16:48 Dose: Not Given Levofloxacin/Dextrose 750 mg/ (Premix) 150 mls @ 100 mls/hr IV ONETIME ONE Stop: 01/15/19 18:32 Last Infusion: 01/15/19 18:56 Dose: Infused Methylprednisolone Sodium Succinate (Solu-Medrol) 125 mg IVPUSH ONETIME ONE Stop: 01/15/19 16:35 Last Admin: 01/15/19 16:48 Dose: 125 mg - Exam General: Alert, Oriented Neck: Supple Lungs: Normal Respiratory Effort, Decreased Breath Sounds, Wheezing Cardiovascular: Regular Rate, Regular Rhythm GI/Abdominal Exam: Normal Bowel Sounds, Soft, Non-Tender Extremities: No Pedal Edema Skin: Warm, Dry Psy/Mental Status: Alert, Normal Affect, Normal Mood - Problem List & Annotations (1) Acute exacerbation of chronic obstructive pulmonary disease (COPD) SNOMED Code(s): 369488730 Code(s): J44.1 - CHRONIC OBSTRUCTIVE PULMONARY DISEASE W (ACUTE) EXACERBATION Status: Acute Current Visit: No (2) Acute on chronic respiratory failure SNOMED Code(s): 40998680 Code(s): J96.20 - ACUTE AND CHR RESP FAILURE, UNSP W HYPOXIA OR HYPERCAPNIA Status: Acute Current Visit: No Qualifiers: Respiratory failure complication: hypoxia Qualified Code(s): J96.21 - Acute and chronic respiratory failure with hypoxia (3) Pneumonia SNOMED Code(s): 350123478 Code(s): J18.9 - PNEUMONIA, UNSPECIFIED ORGANISM Status: Acute Current Visit: No Qualifiers: Pneumonia type: due to unspecified organism Laterality: bilateral Lung location: unspecified part of lung Qualified Code(s): J18.9 - Pneumonia, unspecified organism - Problem List Review Problem List Initiated/Reviewed/Updated: Yes - My Orders Last 24 Hours: My Active Orders 01/15/19 18:15 CULTURE SPUTUM + SMEAR [RM] Routine 01/15/19 18:16 RT Aerosol Therapy [RC] ASDIRECTED Albuterol/Ipratropium [DuoNeb 3.0-0.5 MG/3 ML] 3 ml NEB Q2H PRN 01/15/19 18:22 Oxygen Therapy [RC] PRN Up With Assistance [RC] ASDIRECTED VTE/DVT Education [RC] PER UNIT ROUTINE Vital Signs [RC] 00,04,08,12,16,20 Acetaminophen [Tylenol] 650 mg PO Q4H PRN Docusate Sodium [Colace] 100 mg PO BID PRN Ondansetron [Zofran ODT] 4 mg PO Q4H PRN Sodium Chloride 0.9% [Saline Flush] 10 ml FLUSH ASDIRECTED PRN Zolpidem [Ambien] 5 mg PO BEDTIME PRN Antiembolic Hose [OM.PC] Per Unit Routine Saline Lock Insert [OM.PC] Routine Resuscitation Status Routine 01/15/19 18:23 Antiembolic Devices [RC] PER UNIT ROUTINE 01/15/19 18:45 Finasteride [Proscar] 5 mg PO ACDINNER Tamsulosin [Flomax] 0.4 mg PO ACDINNER 01/15/19 22:00 Heparin Sodium 5,000 units SUBCUT Q8HR 01/15/19 23:00 Tofacitinib Citrate [Xeljanz Xr] 11 mg PO BEDTIME 01/15/19 23:20 CULTURE URINE [RM] Routine 01/16/19 00:00 methylPREDNISolone Sod Succ [Solu-MEDROL] 40 mg IVPUSH Q8H 01/16/19 01:00 Albuterol/Ipratropium [DuoNeb 3.0-0.5 MG/3 ML] 3 ml NEB Q6HRRT 01/16/19 07:00 Budesonide [Pulmicort] 0.5 mg NEB BIDRT 01/16/19 09:00 Folic Acid 1 mg PO DAILY Patient's Own Medication [Ptom] DOSE each PO DAILY Roflumilast [Daliresp] 500 mcg PO DAILY 01/16/19 16:00 Levofloxacin/Dextrose 5%-Water [Levaquin in D5W 750 MG/150 ML] 750 mg Premix Bag 1 bag IV Q24H 01/17/19 05:15 BASIC METABOLIC PANEL,BMP [CHEM] AM CBC WITH AUTO DIFF [HEME] AM - Plan Plan:: 78-year-old gentleman with a history of COPD, home oxygen use at night. Presented with fever, increasing shortness of breath. Acute on chronic hypoxemic respiratory failure On presentation to the emergency room the patient was hypoxemic, started on BiPAP. ABG showed no CO2 retention Shortness of breath is improved We'll try to wean BiPAP off to nasal cannula oxygen Supplement oxygen as needed Acute COPD exacerbation treat with IV Solu-Medrol and Pulmicort DuoNeb scheduled and as needed Acute community-acquired pneumonia sputum culture: pending Blood culture: pending Treat empirically with levofloxacin DVT prophylaxis with subcutaneous heparin
[2019-01-16] MEDS: Finasteride 5 MG Tab PO SCH (17:19)
[2019-01-16] MEDS: Tamsulosin 0.4 MG Cap.ER PO SCH (17:19)
[2019-01-16] MEDS: Levofloxacin/Dextrose 5%-Water 750 MG in Premix Bag 1 BAG IV SCH (17:19)
[2019-01-16] MEDS: TOFACITINIB CITRATE 11 MG PO SCH (21:02)
[2019-01-17] MEDS: Albuterol/Ipratropium 3.0-0.5 MG/3 ML Neb Soln NEB SCH ×4 (00:41→18:28)
[2019-01-17] MEDS: methylPREDNISolone Sodium Succinate 40 MG/1 ML SDV IVPUSH SCH ×3 (00:41→16:47)
[2019-01-17] MEDS: Zolpidem 5 MG Tab PO PRN (00:48)
[2019-01-17] MEDS: Heparin Sodium 5,000 Units/ML Vial SUBCUT SCH ×3 (05:42→21:23)
[2019-01-17 06:33] LABS: ANION GAP 14.9; CHLORIDE,CL 102 mmol/L (101-111); SODIUM,NA 137 mmol/L (135-145)
[2019-01-17] MEDS: Budesonide 0.5 MG/2 ML Neb Susp NEB SCH (07:09)
[2019-01-17] MEDS: Calcium Carbonate/Vitamin D3 1250 MG-200 Unit Tab PO SCH (08:59)
[2019-01-17] MEDS: Folic Acid 1 MG Tab PO SCH (08:59)
[2019-01-17] MEDS: Sodium Chloride 0.9% 10 ML Syringe FLUSH PRN (09:02)
--- NOTE | 2019-01-17 11:16 | PCM.PN ---
- General Info Date of Service: 01/17/19 Admission Dx/Problem (Free Text): Admission Diagnosis/Problem Admission Diagnosis/Problem Exacerbation of chronic obstructive pulmonary disease Subjective Update: He was weaned off BiPAP. Feels the breathing is better. sitting up in chair. No associated chest pain. Symptoms started 2- 3 days prior to admission. No abdominal pain. Functional Status: Reports: Pain Controlled - Review of Systems General: Reports: Weakness. Denies: Fever Pulmonary: Reports: Shortness of Breath Cardiovascular: Denies: Chest Pain, Edema Genitourinary: Denies: Dysuria Psychiatric: Denies: Confusion - Patient Data Vitals - Most Recent: Last Vital Signs Temp 36.9 C 01/17/19 00:00 Pulse 93 01/17/19 07:09 Resp 28 H 01/17/19 00:00 BP 158/80 H 01/17/19 00:00 Pulse Ox 97 01/17/19 00:00 Weight - Most Recent: 77.383 kg I&O - Last 24 Hours: Intake & Output 01/16/19 01/17/19 01/17/19 22:59 06:59 14:59 Intake Total 1115 Balance 1115 Lab Results Last 24 Hours: Laboratory Results - last 24 hr 01/16/19 01/17/19 01/17/19 Range/Units 20:51 05:20 05:20 WBC 12.0 H (5.0-10.0) 10^3/uL RBC 3.56 L (4.6-6.2) 10^6/uL Hgb 11.5 L (14.0-18.0) g/dL Hct 35.8 L (40.0-54.0) % MCV 100.6 H (80-100) fL MCH 32.3 (27.0-34.0) pg MCHC 32.1 L (33.0-35.0) g/dL Plt Count 282 (150-450) 10^3/uL Neut % (Auto) 85.7 H (42.2-75.2) % Lymph % (Auto) 9.3 L (20.5-50.1) % [place] % (Auto) 4.8 (2-8) % Eos % (Auto) 0.1 L (1.0-3.0) % Baso % (Auto) 0.1 (0.0-1.0) % Sodium 137 (135-145) mmol/L Potassium 3.9 (3.6-5.0) mmol/L Chloride 102 (101-111) mmol/L Carbon Dioxide 24.0 (21.0-31.0) mmol/L Anion Gap 14.9 BUN 26 H (7-18) mg/dL Creatinine 1.1 (0.6-1.3) mg/dL Est Cr Clr Drug Dosing 45.98 mL/min Estimated GFR (MDRD) > 60 Glucose 196 H (74-105) mg/dL POC Glucose 178 H (83-110) mg/dl Calcium 8.8 (8.4-10.2) mg/dl Dave Results Last 24 Hours: Microbiology 01/15/19 23:20 Urine Culture - Preliminary Urine, Clean Catch 01/16/19 17:00 Gram Stain - Final Sputum - Expectorated Sputum Culture - Final 01/15/19 17:06 Aerobic Blood Culture - Preliminary Blood - Venous - Lab Draw NO GROWTH AFTER 1 DAY Anaerobic Blood Culture - Preliminary NO GROWTH AFTER 1 DAY 01/15/19 16:38 Aerobic Blood Culture - Preliminary Blood - Venous NO GROWTH AFTER 1 DAY Anaerobic Blood Culture - Final Med Orders - Current: Current Medications Acetaminophen (Tylenol) 650 mg PO Q4H PRN PRN Reason: Pain (Mild 1-3)/fever Albuterol/Ipratropium (Duoneb 3.0-0.5 Mg/3 Ml) 3 ml NEB Q2H PRN PRN Reason: sob Albuterol/Ipratropium (Duoneb 3.0-0.5 Mg/3 Ml) 3 ml NEB Q6HRRT [facility] Last Admin: 01/17/19 07:09 Dose: 3 ml Budesonide (Pulmicort) 0.5 mg NEB BIDRT [facility] Last Admin: 01/17/19 07:09 Dose: 0.5 mg Calcium Carbonate (Calcium Carbonate/Vitamin D 1250 Mg-200 Unit) 1 tab PO DAILY [facility] Last Admin: 01/17/19 08:59 Dose: 1 tab Docusate Sodium (Colace) 100 mg PO BID PRN PRN Reason: Constipation Finasteride (Proscar) 5 mg PO ACDINNER [facility] Last Admin: 01/16/19 17:19 Dose: 5 mg Folic Acid (Folic Acid) 1 mg PO DAILY [facility] Last Admin: 01/17/19 08:59 Dose: 1 mg Heparin Sodium (Porcine) (Heparin Sodium) 5,000 units SUBCUT Q8HR [facility] Last Admin: 01/17/19 05:42 Dose: 5,000 units Levofloxacin/Dextrose 750 mg/ (Premix) 150 mls @ 100 mls/hr IV Q24H [facility] Last Admin: 01/16/19 17:19 Dose: 100 mls/hr Methylprednisolone Sodium Succinate (Solu-Medrol) 40 mg IVPUSH Q8H [facility] Last Admin: 01/17/19 08:59 Dose: 40 mg (Roflumilast [ Daliresp] 500 Mcg) *Own Med 500 mcg PO DAILY [facility] Last Admin: 01/17/19 09:06 Dose: 500 mcg (Tofacitinib Citrate [Xeljanz Xr] 11 Mg) Own Med 11 mg PO BEDTIME [facility] Last Admin: 01/16/19 21:02 Dose: 11 mg Ondansetron HCl (Zofran Odt) 4 mg PO Q4H PRN PRN Reason: nausea, able to take PO Patient Own Medication (Ptom) each PO DAILY [facility] Sodium Chloride (Saline Flush) 10 ml FLUSH ASDIRECTED PRN PRN Reason: Keep Vein Open Last Admin: 01/15/19 18:57 Dose: 10 ml Sodium Chloride (Saline Flush) 10 ml FLUSH ASDIRECTED PRN PRN Reason: Keep Vein Open Last Admin: 01/17/19 09:02 Dose: 10 ml Tamsulosin HCl (Flomax) 0.4 mg PO ACDINNER [facility] Last Admin: 01/16/19 17:19 Dose: 0.4 mg Zolpidem Tartrate (Ambien) 5 mg PO BEDTIME PRN PRN Reason: Sleep Last Admin: 01/17/19 00:48 Dose: 5 mg Discontinued Medications Albuterol/Ipratropium (Duoneb 3.0-0.5 Mg/3 Ml) 3 ml NEB ONETIME ONE Stop: 01/15/19 16:35 Last Admin: 01/15/19 16:48 Dose: 3 ml Albuterol/Ipratropium (Duoneb 3.0-0.5 Mg/3 Ml) Confirm Administered Dose 3 ml .ROUTE .STK-MED ONE Stop: 01/15/19 16:38 Last Admin: 01/15/19 16:48 Dose: Not Given Levofloxacin/Dextrose 750 mg/ (Premix) 150 mls @ 100 mls/hr IV ONETIME ONE Stop: 01/15/19 18:32 Last Infusion: 01/15/19 18:56 Dose: Infused Methylprednisolone Sodium Succinate (Solu-Medrol) 125 mg IVPUSH ONETIME ONE Stop: 01/15/19 16:35 Last Admin: 01/15/19 16:48 Dose: 125 mg - Exam General: Alert, Oriented Neck: Supple Lungs: Decreased Breath Sounds, Rhonchi, Wheezing Cardiovascular: Regular Rate, Regular Rhythm GI/Abdominal Exam: Normal Bowel Sounds, Soft, Non-Tender Extremities: No Pedal Edema Skin: Warm, Dry, Intact Neurological: No New Focal Deficit Psy/Mental Status: Alert, Normal Affect, Normal Mood Sepsis Event Note - Evaluation Sepsis Screening Result: Sepsis Risk - Focused Exam Vital Signs: Vital Signs Temp Pulse Resp BP Pulse Ox 01/17/19 07:09 93 01/17/19 00:00 36.9 C 93 28 H 158/80 H 97 Date Exam was Performed: 01/17/19 Time Exam was Performed: 11:13 - Problem List & Annotations (1) Acute exacerbation of chronic obstructive pulmonary disease (COPD) SNOMED Code(s): 117192045 Code(s): J44.1 - CHRONIC OBSTRUCTIVE PULMONARY DISEASE W (ACUTE) EXACERBATION Status: Acute Current Visit: No (2) Acute on chronic respiratory failure SNOMED Code(s): 95362027 Code(s): J96.20 - ACUTE AND CHR RESP FAILURE, UNSP W HYPOXIA OR HYPERCAPNIA Status: Acute Current Visit: No Qualifiers: Respiratory failure complication: hypoxia Qualified Code(s): J96.21 - Acute and chronic respiratory failure with hypoxia (3) Pneumonia SNOMED Code(s): 257943380 Code(s): J18.9 - PNEUMONIA, UNSPECIFIED ORGANISM Status: Acute Current Visit: No Qualifiers: Pneumonia type: due to unspecified organism Laterality: bilateral Lung location: unspecified part of lung Qualified Code(s): J18.9 - Pneumonia, unspecified organism - Problem List Review Problem List Initiated/Reviewed/Updated: Yes - My Orders Last 24 Hours: My Active Orders 01/16/19 16:00 Levofloxacin/Dextrose 5%-Water [Levaquin in D5W 750 MG/150 ML] 750 mg Premix Bag 1 bag IV Q24H 01/17/19 09:00 Calcium Carbonate/Vitamin D3 [Calcium Carbonate/Vitamin D 1250 MG-200 Unit] 1 tab PO DAILY - Plan Plan:: 78-year-old gentleman with a history of COPD, home oxygen use at night. Presented with fever, increasing shortness of breath. Acute on chronic hypoxemic respiratory failure On presentation to the emergency room the patient was hypoxemic, started on BiPAP. ABG showed no CO2 retention Shortness of breath is improved off BiPAP cont on nasal cannula oxygen Supplement oxygen as needed Acute COPD exacerbation treat with IV Solu-Medrol and Pulmicort DuoNeb scheduled and as needed Acute community-acquired pneumonia sputum culture: pending Blood culture: pending cont to Treat empirically with levofloxacin DVT prophylaxis with subcutaneous heparin
[2019-01-17] MEDS: Levofloxacin/Dextrose 5%-Water 750 MG in Premix Bag 1 BAG IV SCH (16:47)
[2019-01-17] MEDS: Finasteride 5 MG Tab PO SCH (16:47)
[2019-01-17] MEDS: Tamsulosin 0.4 MG Cap.ER PO SCH (16:47)
[2019-01-17] MEDS: Albuterol/Ipratropium 3.0-0.5 MG/3 ML Neb Soln NEB PRN (21:14)
[2019-01-17] MEDS: TOFACITINIB CITRATE 11 MG PO SCH (21:23)
[2019-01-17] MEDS: Simethicone 80 MG Tab.Chew PO PRN (21:23)
[2019-01-18] MEDS: methylPREDNISolone Sodium Succinate 40 MG/1 ML SDV IVPUSH SCH ×3 (00:32→16:40)
[2019-01-18] MEDS: Albuterol/Ipratropium 3.0-0.5 MG/3 ML Neb Soln NEB SCH ×4 (00:32→17:52)
[2019-01-18] MEDS: Heparin Sodium 5,000 Units/ML Vial SUBCUT SCH ×3 (05:08→21:29)
[2019-01-18] MEDS: Budesonide 0.5 MG/2 ML Neb Susp NEB SCH ×3 (07:13→17:52)
[2019-01-18 07:16] LABS: ANION GAP 14.2; CHLORIDE,CL 102 mmol/L (101-111); SODIUM,NA 138 mmol/L (135-145)
[2019-01-18] MEDS: Calcium Carbonate/Vitamin D3 1250 MG-200 Unit Tab PO SCH (08:03)
[2019-01-18] MEDS: Simethicone 80 MG Tab.Chew PO PRN ×2 (08:03→16:49)
[2019-01-18] MEDS: Folic Acid 1 MG Tab PO SCH (08:03)
[2019-01-18] MEDS: Acetaminophen 325 MG Tab PO PRN ×2 (13:15→18:11)
[2019-01-18] MEDS: Levofloxacin/Dextrose 5%-Water 750 MG in Premix Bag 1 BAG IV SCH (16:39)
[2019-01-18] MEDS: Finasteride 5 MG Tab PO SCH (16:40)
[2019-01-18] MEDS: Tamsulosin 0.4 MG Cap.ER PO SCH (16:40)
[2019-01-18] MEDS: TOFACITINIB CITRATE 11 MG PO SCH (21:28)
[2019-01-18] MEDS: Zolpidem 5 MG Tab PO PRN (21:31)
[2019-01-19] MEDS: Albuterol/Ipratropium 3.0-0.5 MG/3 ML Neb Soln NEB SCH ×4 (01:09→17:55)
[2019-01-19] MEDS: methylPREDNISolone Sodium Succinate 40 MG/1 ML SDV IVPUSH SCH ×3 (01:09→20:39)
[2019-01-19] MEDS: Heparin Sodium 5,000 Units/ML Vial SUBCUT SCH ×3 (05:34→22:13)
[2019-01-19] MEDS: Budesonide 0.5 MG/2 ML Neb Susp NEB SCH ×2 (07:47→17:55)
[2019-01-19] MEDS: Folic Acid 1 MG Tab PO SCH (08:22)
[2019-01-19] MEDS: Calcium Carbonate/Vitamin D3 1250 MG-200 Unit Tab PO SCH (08:22)
[2019-01-19] MEDS: Simethicone 80 MG Tab.Chew PO PRN ×2 (08:22→20:39)
--- NOTE | 2019-01-19 08:57 | PN ---
DATE: 01/18/2019 SUBJECTIVE: Mr. Brayan Guillory is a 78-year-old male with a medical history significant for hypertension, hyperlipidemia, chronic obstructive pulmonary airway disease admitted to the hospital with complaints of increasing shortness of breath and was noted to be in acute COPD exacerbation with underlying pneumonia and acute hypoxic respiratory failure requiring BiPAP at the time of admission. For the last 24 hours, the patient denies any ongoing chest pain, so he is off the BiPAP. He is able to saturate well on nasal cannula oxygen. Continues to have shortness of breath. He grades it as 4 to 5 by 10 in intensity, aggravated on exertion, relieved with rest, associated with mild cough with sputum. Denies any abdominal pain. No nausea. No vomiting. No diarrhea. REVIEW OF SYSTEMS: Cardiovascular, respiratory, gastrointestinal, neurology, constitutional were all evaluated. PHYSICAL EXAMINATION: Vital Signs: Temperature of 99.1, pulse of 115, blood pressure of 147/71, respiratory rate of 24, saturating at 95% on 2 L of oxygen. General Appearance: The patient is well oriented to time, place, and person. Follows commands spontaneously. Cardiovascular System: S1 and S2 heard with normal intensity. No gallops. Respiratory System: Clear to auscultation bilaterally except for crepitations at the base. No wheeze. Abdomen: Soft. Bowel sounds positive. Nontender. No rigidity. Extremities: No edema to bilateral lower extremities. Neurologic: No gross focal neurological deficits. LABORATORY DATA: 1. WBC 12.9, hemoglobin 12, hematocrit 36.7, platelet count 304. 2. Sodium 138, potassium 4.2, chloride 102, BUN 23, creatinine 1.1, glucose 151. MICROBIOLOGY: Sputum culture shows gram-positive cocci and gram-positive bacilli and yeast. ID and susceptibility to follow. Blood cultures remain negative. MEDICATIONS: Reviewed. Continue the same. Continue with DuoNeb and Pulmicort nebulizer; Proscar 5 mg daily; heparin 5000 subcutaneous q.8 hourly; levofloxacin 750 mg daily; Solu-Medrol 40 mg IV q.8 hourly; Flomax 0.4 mg at dinner. ASSESSMENT: 1. Pneumonia. 2. Acute chronic obstructive pulmonary disease exacerbation. 3. Acute hypoxic respiratory failure. PLAN: 1. COPD exacerbation. The patient is currently on DuoNeb and Pulmicort nebulizer. Continue the same. He is currently on IV methylprednisone. We will taper the dose and closely follow. 2. Pneumonia. The patient is currently on IV antibiotic with levofloxacin. Continue the same. His sputum culture is growing some gram-positive cocci and bacillus. We will follow with ID and susceptibility on the culture report. 3. Acute on chronic respiratory failure, seems to be much improved. He is currently on nasal cannula oxygen. The patient usually uses oxygen at home during the night. We will try to maintain saturations around 95%. 4. DVT prophylaxis. Continue with heparin for DVT prophylaxis. [facility] /[id number]
--- NOTE | 2019-01-19 13:00 | PN ---
DATE: 01/19/2019 HISTORY OF PRESENT ILLNESS: Mr. Brayan Guillory is a 78-year-old male with medical history significant for hypertension, hyperlipidemia, chronic obstructive pulmonary disease, admitted with complaints of increasing shortness of breath, noted to have acute COPD exacerbation, acute hypoxic respiratory failure requiring BiPAP at the time of admission. For the last 24 hours, the patient continues to be on nasal cannula oxygen. He is requiring 1 to 1.5 L of oxygen. He denies any ongoing chest pain but continues to have shortness of breath, rates it as 3 to 4/10 in intensity, aggravated on exertion, relieved with rest. Not associated with any nausea or vomiting. REVIEW OF SYSTEMS: Cardiovascular, respiratory, gastrointestinal, neurology, constitutional were all evaluated. PHYSICAL EXAMINATION: Vital Signs: Temperature of 98.8, pulse of 94, blood pressure 144/90, respiratory rate of 20, saturating at 95% on 1 L of oxygen. General Appearance: The patient is well oriented to time, place, and person. Follows commands spontaneously. Cardiovascular System: S1, S2 heard with normal intensity. Respiratory System: Bilateral wheeze, more so at the bases. Abdomen: Soft. Bowel sounds positive. Nontender. No rigidity. Extremities: No edema bilateral lower extremities. MEDICATIONS: Reviewed: 1. Continue with DuoNeb and Pulmicort nebulizer. 2. Proscar 5 mg at dinner. 3. Folic acid 1 mg daily. 4. Heparin 5000 subcu q.8 hourly. 5. Levofloxacin daily 750 mg. 6. Methylprednisone 40 mg IV q.12 hourly. 7. Simethicone 80 mg q.6 hourly. 8. Ambien at night for sleep. 9. Flomax 0.4 mg at dinner. LABORATORY DATA: WBC 12. No new labs ordered for today. We will order for CBC and a BMP in a.m. ASSESSMENT: 1. Acute chronic obstructive pulmonary disease exacerbation. 2. Acute hypoxic respiratory failure. 3. Pneumonia. PLAN: 1. Acute COPD exacerbation. The patient is currently on DuoNeb and Pulmicort nebulizer and also steroid. We will change IV methylprednisone to 40 mg q.12 hourly. We will increase the patient to use incentive spirometer and flutter valve for better pulmonary toileting. 2. Acute hypoxic respiratory failure. The patient continues to be hypoxic. He is requiring 1 L of oxygen. He required BiPAP at the time of admission. We will plan to gradually wean him off the oxygen. Closely follow. 3. Pneumonia. The patient was noted to have pneumonia on the x-ray. He is currently on Levaquin. We will closely follow the culture reports. 4. DVT prophylaxis. Continue with heparin for DVT prophylaxis. [facility] /[id number]
[2019-01-19] MEDS: Levofloxacin/Dextrose 5%-Water 750 MG in Premix Bag 1 BAG IV SCH (16:28)
[2019-01-19] MEDS: Tamsulosin 0.4 MG Cap.ER PO SCH (16:47)
[2019-01-19] MEDS: Finasteride 5 MG Tab PO SCH (16:48)
[2019-01-19] MEDS: Sodium Chloride 0.9% 10 ML Syringe FLUSH PRN (20:39)
[2019-01-19] MEDS: TOFACITINIB CITRATE 11 MG PO SCH (20:45)
[2019-01-19] MEDS: Zolpidem 5 MG Tab PO PRN (22:13)
[2019-01-20] MEDS: Albuterol/Ipratropium 3.0-0.5 MG/3 ML Neb Soln NEB SCH ×4 (01:07→17:58)
[2019-01-20] MEDS: Heparin Sodium 5,000 Units/ML Vial SUBCUT SCH ×3 (06:19→22:00)
[2019-01-20 06:38] LABS: ANION GAP 14.2; CHLORIDE,CL 98 mmol/L (101-111); SODIUM,NA 135 mmol/L (135-145)
[2019-01-20] MEDS: Budesonide 0.5 MG/2 ML Neb Susp NEB SCH ×2 (09:07→18:06)
[2019-01-20] MEDS: Calcium Carbonate/Vitamin D3 1250 MG-200 Unit Tab PO SCH (09:08)
[2019-01-20] MEDS: Folic Acid 1 MG Tab PO SCH (09:08)
[2019-01-20] MEDS: methylPREDNISolone Sodium Succinate 40 MG/1 ML SDV IVPUSH SCH ×3 (09:14→22:02)
[2019-01-20] MEDS: Sodium Chloride 0.9% 10 ML Syringe FLUSH PRN ×4 (09:14→22:02)
[2019-01-20] MEDS ORDERED: Furosemide 20 MG Tab PO ONE ×2 (13:27→16:45)
--- NOTE | 2019-01-20 15:43 | PN ---
DATE: 01/20/2019 SUBJECTIVE: Mr. Brayan Guillory is a 78-year-old male with a medical history significant for hypertension, hyperlipidemia, chronic obstructive pulmonary disease, admitted with increasing shortness of breath, noted to have acute COPD exacerbation, acute hypoxic respiratory failure requiring BiPAP at the time of admission. For the last 24 hours, the patient continues to have shortness of breath, 4 to 5 by 10 in intensity, aggravated on exertion, relieved with rest. Continues to be on nasal cannula oxygen. Denies any chest pain. No abdominal pain. No nausea. No vomiting. No diarrhea. REVIEW OF SYSTEMS: Cardiovascular, respiratory, gastrointestinal, neurology, constitutional were all evaluated. PHYSICAL EXAMINATION: Vital Signs: Temperature of 98.4, pulse of 92, blood pressure of 139/74, respiratory rate of 26, saturating at 93% on 0.5 L of oxygen. General Appearance: The patient is well oriented to time, place, and person. Follows commands spontaneously. Cardiovascular System: S1 and S2 heard with normal intensity. Respiratory System: Bilateral wheeze noted, most at the bases. Abdomen: Soft. Bowel sounds positive. Nontender. No rigidity. Extremities: No edema in bilateral lower extremities. MEDICATIONS: Reviewed. Continue with DuoNeb and Pulmicort nebulizer. We will increase the Solu-Medrol to 60 mg q.8 hourly with continued wheezing. Continue with the Levaquin daily. LABORATORY DATA: Reviewed. 1. WBC 14.7, hemoglobin 13.1, hematocrit 39.8, and platelet count of 324. 2. Sodium 135, potassium 4.2, BUN 26, creatinine 1, glucose 103. ASSESSMENT: 1. Acute chronic obstructive pulmonary disease exacerbation. 2. Acute hypoxic respiratory failure. 3. Pneumonia. PLAN: 1. Pneumonia. The patient is currently on Levaquin. We will follow with the culture reports. 2. Acute COPD exacerbation. The patient continues to have wheeze. The patient is encouraged to use incentive spirometer and flutter valve for better pulmonary toileting. We will increase the Solu-Medrol to 60 mg IV q.8 hourly as he continues to wheeze. We will continue with DuoNeb and Pulmicort nebulizer. 3. DVT prophylaxis. Continue with heparin for DVT prophylaxis. [facility] /[id number]
[2019-01-20] MEDS: Tamsulosin 0.4 MG Cap.ER PO SCH (16:52)
[2019-01-20] MEDS: Finasteride 5 MG Tab PO SCH (16:52)
[2019-01-20] MEDS: Levofloxacin/Dextrose 5%-Water 750 MG in Premix Bag 1 BAG IV SCH (16:54)
[2019-01-20] MEDS: TOFACITINIB CITRATE 11 MG PO SCH (20:17)
[2019-01-20] MEDS: Simethicone 80 MG Tab.Chew PO PRN (20:17)
[2019-01-20] MEDS: Zolpidem 5 MG Tab PO PRN (21:59)
[2019-01-21] MEDS: Albuterol/Ipratropium 3.0-0.5 MG/3 ML Neb Soln NEB SCH ×4 (00:31→18:00)
[2019-01-21] MEDS: Heparin Sodium 5,000 Units/ML Vial SUBCUT SCH ×3 (05:43→22:16)
[2019-01-21] MEDS: Sodium Chloride 0.9% 10 ML Syringe FLUSH PRN ×2 (05:45→09:28)
[2019-01-21] MEDS: methylPREDNISolone Sodium Succinate 40 MG/1 ML SDV IVPUSH SCH ×3 (05:47→22:15)
[2019-01-21] MEDS: Budesonide 0.5 MG/2 ML Neb Susp NEB SCH ×2 (07:12→17:59)
[2019-01-21] MEDS: Calcium Carbonate/Vitamin D3 1250 MG-200 Unit Tab PO SCH (09:25)
[2019-01-21] MEDS: Folic Acid 1 MG Tab PO SCH (09:26)
[2019-01-21] MEDS: Albuterol/Ipratropium 3.0-0.5 MG/3 ML Neb Soln NEB PRN (13:16)
--- NOTE | 2019-01-21 13:35 | PN ---
DATE: 01/21/2019 HISTORY OF PRESENT ILLNESS: Mr. Brayan Guillory is a 78-year-old male with a medical history significant for hypertension, hyperlipidemia, chronic obstructive pulmonary disease admitted with increasing shortness of breath. Noted to have acute COPD exacerbation, acute hypoxic respiratory failure, requiring BiPAP at the time of admission. For the last 24 hours, the patient's shortness of breath has much improved. He is off the oxygen. He is able to saturate well on room air. He denies any chest pain. No abdominal pain. No nausea. No vomiting. REVIEW OF SYSTEMS: Cardiovascular, respiratory, gastrointestinal, neurology, constitutional were all evaluated. PHYSICAL EXAMINATION: Vital Signs: Temperature of 98.8, pulse of 94, blood pressure of 143/76, respiratory rate of 22, saturating at 93% on room air. General Appearance: The patient is well oriented to time, place, and person. Follows commands spontaneously. Cardiovascular System: S1, S2 heard with normal intensity. No gallops. Respiratory System: Clear to auscultation bilaterally except for mild crepitations at the base. No wheeze. Abdomen: Soft. Bowel sounds positive. Nontender. No rigidity. Extremities: No edema, bilateral lower extremities. MEDICATIONS: Reviewed. Continue DuoNeb every 6 hours, Pulmicort twice a day, Proscar 5 mg daily, heparin 5000 subcutaneous q.8 hourly, Levaquin daily, Flomax 0.4 mg at bedtime. ASSESSMENT: 1. Acute chronic obstructive pulmonary disease exacerbation. 2. Acute hypoxic respiratory failure, improved. 3. Pneumonia, on antibiotics. PLAN: 1. Acute COPD exacerbation. This seems to be much improved after increasing his steroid dose. We increased the methylprednisone dose. We will continue with 1 more day of IV methylprednisone and this seems to be helpful to him. The patient is encouraged to use incentive spirometer and flutter valve for better pulmonary toileting. Continue with DuoNeb and Pulmicort nebulizers. The patient is encouraged to ambulate. 2. Pneumonia. The patient is currently on Levaquin. So far, his cultures remained negative. 3. Acute hypoxic respiratory failure, seems to be much improved. He usually uses oxygen at night at home. We are able to wean him off the oxygen. He is currently saturating well on room air. We will closely follow. 4. DVT prophylaxis. Continue with the heparin for DVT prophylaxis. [facility] /[id number]
[2019-01-21] MEDS: Simethicone 80 MG Tab.Chew PO PRN ×2 (15:33→22:15)
[2019-01-21] MEDS: Levofloxacin/Dextrose 5%-Water 750 MG in Premix Bag 1 BAG IV SCH (15:35)
[2019-01-21] MEDS: Finasteride 5 MG Tab PO SCH (17:34)
[2019-01-21] MEDS: Tamsulosin 0.4 MG Cap.ER PO SCH (17:34)
[2019-01-21] MEDS: TOFACITINIB CITRATE 11 MG PO SCH (22:14)
[2019-01-21] MEDS: Zolpidem 5 MG Tab PO PRN (22:15)
[2019-01-22] MEDS: Albuterol/Ipratropium 3.0-0.5 MG/3 ML Neb Soln NEB SCH ×4 (01:35→18:11)
[2019-01-22 06:31] LABS: ANION GAP 12.4
[2019-01-22] MEDS: Heparin Sodium 5,000 Units/ML Vial SUBCUT SCH ×3 (06:36→21:26)
[2019-01-22] MEDS: methylPREDNISolone Sodium Succinate 40 MG/1 ML SDV IVPUSH SCH ×3 (06:37→21:26)
[2019-01-22] MEDS: Budesonide 0.5 MG/2 ML Neb Susp NEB SCH ×2 (07:02→18:11)
[2019-01-22] MEDS: Calcium Carbonate/Vitamin D3 1250 MG-200 Unit Tab PO SCH (10:00)
[2019-01-22] MEDS: Folic Acid 1 MG Tab PO SCH (10:00)
[2019-01-22] MEDS ORDERED: Aluminum Hydroxide/Magnesium Hydroxide/Simethicone Susp 30 ML Cup PO PRN (12:32)
--- NOTE | 2019-01-22 13:29 | PN ---
DATE: 01/22/2019 SUBJECTIVE: Mr. Brayan Guillory is a 78-year-old male with a medical history significant for hypertension, hyperlipidemia, chronic obstructive pulmonary disease, admitted with increasing shortness of breath, noted to have acute COPD exacerbation, acute hypoxic respiratory failure requiring BiPAP at the time of admission. For the last 24 hours, he is off the oxygen. He denies any chest pain. No shortness of breath. No abdominal pain. No nausea. No vomiting. No diarrhea. REVIEW OF SYSTEMS: Cardiovascular, respiratory, gastrointestinal, neurology, constitutional were all evaluated. PHYSICAL EXAMINATION: Vital Signs: Temperature of 98.8, pulse of 91, blood pressure 137/75, respiratory rate of 14, saturating at 94% on room air. General Appearance: The patient is well oriented to time, place, and person. Follows commands spontaneously. Cardiovascular System: S1 and S2 heard with normal intensity. No gallops. Respiratory System: Clear to auscultation bilaterally. Minimal crepitations at the base. No wheeze. Abdomen: Soft. Bowel sounds positive. Nontender. No rigidity. Extremities: No edema in bilateral lower extremities. MEDICATIONS: Reviewed. Continue with DuoNeb nebulizer every 2 hours as needed and every 6 hours as scheduled, Pulmicort 0.5 mg nebulizer twice a day, docusate sodium 100 mg twice a day as needed for constipation, heparin 5000 subcutaneous q.8 hourly, methylprednisone decreased to 40 mg IV q.8 hourly, simethicone 80 mg q.6 hours as needed. LABORATORY DATA: 1. WBC 13.8, hemoglobin 12.6, hematocrit 37.7, platelet count 312. 2. Sodium 134, potassium 4.4, chloride 100, BUN 31, creatinine 1.2, and glucose 143. ASSESSMENT: 1. Acute chronic obstructive pulmonary disease exacerbation. 2. Acute hypoxic respiratory failure, improved. 3. Pneumonia and antibiotics. PLAN: 1. Acute COPD exacerbation. The patient is currently on nebulizer treatment with Pulmicort and DuoNeb nebulizer. We also have him on IV methylprednisone. We will gradually decrease the steroids to 40 mg IV q.8 hourly and switch him to oral prednisone in a.m. The patient is complaining of some abdominal discomfort, could be from steroids, so we will add omeprazole. 2. Pneumonia. The patient is currently on IV Levaquin. Continue the same. 3. Acute hypoxic respiratory failure, much improved. He is able to saturate well on room air. The patient usually uses oxygen at night at home. 4. DVT prophylaxis. Continue with heparin for DVT prophylaxis. [facility] /[id number] MTDD
[2019-01-22] MEDS: Omeprazole 20 MG Cap.CR PO SCH (13:30)
[2019-01-22] MEDS: Tamsulosin 0.4 MG Cap.ER PO SCH (16:13)
[2019-01-22] MEDS: Levofloxacin/Dextrose 5%-Water 750 MG in Premix Bag 1 BAG IV SCH (16:13)
[2019-01-22] MEDS: Finasteride 5 MG Tab PO SCH (16:13)
[2019-01-22] MEDS: TOFACITINIB CITRATE 11 MG PO SCH (21:25)
[2019-01-22] MEDS: Zolpidem 5 MG Tab PO PRN (21:26)
[2019-01-23] MEDS: Albuterol/Ipratropium 3.0-0.5 MG/3 ML Neb Soln NEB SCH ×4 (01:09→17:54)
[2019-01-23] MEDS: Heparin Sodium 5,000 Units/ML Vial SUBCUT SCH ×3 (05:52→21:34)
[2019-01-23] MEDS: Omeprazole 20 MG Cap.CR PO SCH (05:52)
[2019-01-23] MEDS: methylPREDNISolone Sodium Succinate 40 MG/1 ML SDV IVPUSH SCH (05:52)
[2019-01-23] MEDS: Budesonide 0.5 MG/2 ML Neb Susp NEB SCH ×2 (07:36→17:55)
[2019-01-23] MEDS: Calcium Carbonate/Vitamin D3 1250 MG-200 Unit Tab PO SCH (09:30)
[2019-01-23] MEDS: Folic Acid 1 MG Tab PO SCH (09:30)
--- NOTE | 2019-01-23 14:38 | PN ---
DATE: 01/23/2019 SUBJECTIVE: Mr. Brayan Guillory is a 79-year-old male with medical history significant for hypertension, hyperlipidemia, chronic obstructive pulmonary disease, admitted with increasing shortness of breath, noted to have acute on chronic obstructive pulmonary disease exacerbation, acute hypoxic respiratory failure requiring BiPAP at the time of admission. For the last 24 hours, the patient is off the nasal cannula oxygen. He is able to saturate well on room air. He denies any chest pain. No shortness of breath. No abdominal pain. REVIEW OF SYSTEMS: Cardiovascular, respiratory, gastrointestinal, neurology, and constitutional were all evaluated. PHYSICAL EXAMINATION: Vital Signs: Temperature of 98.9, pulse of 82, blood pressure 152/80, saturating at 94% on room air, respiratory rate of 20. General Appearance: The patient is well oriented to time, place, and person. Follows commands spontaneously. Cardiovascular System: S1 and S2 heard with normal intensity. No gallops. Respiratory System: Clear to auscultation bilaterally. No wheeze. Abdomen: Soft. Bowel sounds positive. Nontender. No rigidity. Extremities: No edema in bilateral lower extremities. MEDICATIONS: Reviewed. 1. Continue with DuoNeb and Pulmicort nebulizer. 2. Proscar 5 mg daily. 3. Folic acid 1 mg daily. 4. Heparin 5000 subcu q.8h hourly. 5. Levofloxacin 750 mg IV daily. 6. Omeprazole 20 mg daily. 7. Prednisone 40 mg oral daily. 8. Simethicone 80 mg every 6 hours as needed. 9. Flomax 0.4 mg at dinner. LABORATORY DATA: Reviewed. No new labs ordered for today. ASSESSMENT: 1. Acute on chronic obstructive pulmonary disease exacerbation, improved. 2. Acute hypoxic respiratory failure, improved. 3. Pneumonia, on antibiotics. PLAN: 1. Acute on chronic obstructive pulmonary disease exacerbation. The patient was admitted with acute on chronic obstructive pulmonary disease exacerbation. We tried to wean him down the steroids previously but this failed as the patient got more wheezing, so we had to actually escalate the steroids to 80 mg q.8 hourly, then slowly decreased to 40 mg q.8 hourly, and now we have him on oral steroid. We will watch him in the next 24 hours on oral steroids. If he is stable, then possible discharge in a.m. We will continue with Pulmicort and DuoNeb nebulizer and we will have him on incentive spirometer and flutter valve for better pulmonary toileting. 2. Acute hypoxic respiratory failure, resolved. The patient is back to baseline. He is able to saturate well on room air. The patient uses oxygen at night at home. 3. Deep vein thrombosis prophylaxis. Continue with heparin for deep vein thrombosis prophylaxis. 4. Pneumonia. The patient is currently on Levaquin. We will switch him to oral Levaquin at this time. [facility] /[id number]
[2019-01-23] MEDS ORDERED: Levofloxacin 500 MG Tab PO SCH (16:00)
[2019-01-23] MEDS: Tamsulosin 0.4 MG Cap.ER PO SCH (16:45)
[2019-01-23] MEDS: Finasteride 5 MG Tab PO SCH (16:45)
[2019-01-23] MEDS: TOFACITINIB CITRATE 11 MG PO SCH (21:33)
[2019-01-23] MEDS: Zolpidem 5 MG Tab PO PRN (21:34)
[2019-01-24] MEDS: Albuterol/Ipratropium 3.0-0.5 MG/3 ML Neb Soln NEB SCH ×3 (01:06→13:23)
[2019-01-24] MEDS: Simethicone 80 MG Tab.Chew PO PRN (01:56)
[2019-01-24] MEDS: Omeprazole 20 MG Cap.CR PO SCH (05:28)
[2019-01-24] MEDS: Heparin Sodium 5,000 Units/ML Vial SUBCUT SCH ×2 (05:30→14:08)
[2019-01-24] MEDS: Budesonide 0.5 MG/2 ML Neb Susp NEB SCH (07:14)
[2019-01-24] MEDS ORDERED: predniSONE 20 MG Tab PO SCH (08:00)
[2019-01-24] MEDS: Calcium Carbonate/Vitamin D3 1250 MG-200 Unit Tab PO SCH (08:29)
[2019-01-24] MEDS: Folic Acid 1 MG Tab PO SCH (08:29)
[2019-01-24 11:17] VITALS: BP 132/59; PULSE 93
--- NOTE | 2019-01-24 12:30 | DISCH ---
ADMITTING DIAGNOSES: 1. Acute hypoxic respiratory failure. 2. Acute chronic obstructive pulmonary disease exacerbation. 3. Community-acquired pneumonia. DISCHARGE DIAGNOSES: 1. Acute respiratory failure with hypoxia, resolved. 2. Acute chronic obstructive pulmonary disease exacerbation, improved. 3. Pneumonia, treated with antibiotics. HISTORY OF PRESENTING ILLNESS: Mr. Brayan Guillory is a 79-year-old male with a medical history significant for hypertension, hyperlipidemia, chronic obstructive pulmonary disease, and nocturnal hypoxia requiring oxygen at night admitted with increasing shortness of breath. He was initially noted to be in acute hypoxic respiratory failure requiring BiPAP at the time of admission. He had underlying pneumonia leading to COPD exacerbation. He was started on nebulizer treatment, IV steroids, and IV antibiotics. He responded well to the treatment. The patient was also given incentive spirometer and flutter valve for better pulmonary toileting. His blood cultures remained negative. Sputum culture was positive for gram-positive, but no ID and susceptibility were available at this time. He responded well to the treatment. He required high dose of steroids on this admission. We were able to switch him to oral prednisone and tapered dose of prednisone for home. He will continue with oral Levaquin for next 5 days. He will continue with the nebulizer treatments at home. He is discharged home in stable condition. He is advised to follow with his primary care physician in next 1 week of time. DISCHARGE MEDICATIONS: Include Proventil nebulizer every 4 hours as needed for dyspnea, Ventolin 2 puffs every 4 hours, ascorbic acid 500 mg daily, Pulmicort 0.5 nebulizer twice daily, finasteride 5 mg daily, Perforomist 20 mcg nebulizer twice daily, methotrexate 2.5 mg oral weekly, omeprazole 20 mg daily for 1 month, Flomax 0.4 mg daily, tofacitinib 11 mg at bedtime, Incruse 1 puff inhalation daily, zinc 50 mg daily, levofloxacin 500 mg daily for next 5 days, prednisone tapered dose with 40 mg to 20 to 10 and 5. PHYSICAL EXAMINATION ON THE DAY OF DISCHARGE: Vitals: Temperature of 98.4, pulse of 78, blood pressure 111/64, respiratory rate of 20, saturating at 98% on room air. General Appearance: The patient is well oriented to time, place, and person. Follows commands spontaneously. Cardiovascular System: S1, S2 heard with normal intensity. No gallops. Respiratory System: Clear to auscultation bilaterally. No wheeze. No crepitations. Abdomen: Soft. Bowel sounds positive. Nontender. No rigidity. Extremities: No edema of bilateral lower extremities. CONDITION ON ADMISSION: Poor. CONDITION ON DISCHARGE: Stable. DISPOSITION: Discharged to home. ACTIVITY: As tolerated. DIET: Cardiac healthy diet. FOLLOWUP: Follow with primary care physician next 1 week of time. I spent over 35 minutes of time in evaluating and treating this patient and making discharge plans. [facility] /[id number]
== END 2019-01-24 14:00 | disposition home or self-care (01) | DRG 193 ==
LOC: DL.ED 16:22 → DL.MS 17:31
PROVIDERS: ADMIT Internal Medicine; ATTEND Internal Medicine
PROC: 5A09457 Assistance with Respiratory Ventilation, 24-96 Consecutive Hours, Continuous Positive Airway Pressure (ICD-10-PCS; principal; 2019-01-15)
DX: J18.9 Pneumonia, unspecified organism (principal); J96.21 Acute and chronic respiratory failure with hypoxia; J44.0 Chronic obstructive pulmonary disease with (acute) lower respiratory infection; J44.1 Chronic obstructive pulmonary disease with (acute) exacerbation; Z99.81 Dependence on supplemental oxygen; I10 Essential (primary) hypertension; E78.5 Hyperlipidemia, unspecified; B96.89 Other specified bacterial agents as the cause of diseases classified elsewhere; Z79.899 Other long term (current) drug therapy; Z87.891 Personal history of nicotine dependence; Z28.82 Immunization not carried out because of caregiver refusal
CPT/HCPCS: 36415; 36600; 71045; 80053; 82803; 83605; 83880; 84484; 85025; 87040 ×2; 93005; 94660; 96374; 99284; 99285; J1956; J2930; 80048; 81001; 82962; 83735; 85027; 87086; 87205; 94010; 94640; 94667; A9270-GY; J1644; J2920; J7620-GY

== ENCOUNTER 2019-04-09 11:09 | Observation (INO) | payer MEDICARE, BC ==
[2019-04-09] MEDS ORDERED: Albuterol/Ipratropium 3.0-0.5 MG/3 ML Neb Soln NEB ONE (13:03)
[2019-04-09 13:25] LABS: ANION GAP 13.1; CHLORIDE,CL 101 mmol/L (101-111); SODIUM,NA 136 mmol/L (135-145)
[2019-04-09] MEDS ORDERED: methylPREDNISolone Sodium Succinate 125 MG/2 ML SDV IVPUSH ONE (13:35)
[2019-04-09] MEDS ORDERED: Oseltamivir 75 MG Cap PO ONE (13:35)
--- NOTE | 2019-04-09 13:45 | EDM.PDOC ---
Scribed by Julisa Contreras 04/09/19 0272 for Michael Roblero MD ED HPI GENERAL MEDICAL PROBLEM - General Chief Complaint: Respiratory Problem Stated Complaint: FEVER, CHEST , COUGHING Time Seen by Provider: 04/09/19 12:53 Source of Information: Reports: Patient, Old Records, RN, RN Notes Reviewed History Limitations: Reports: No Limitations - History of Present Illness INITIAL COMMENTS - FREE TEXT/NARRATIVE: Patient presents to ER by POV with complaints of shortness of breath, fever, cough, wheezing, and congestion for 3 days and getting worse. Pt reports Hx of COPD, home supplemental oxygen dependent at 2L. He has been using nebulizers at least twice a day. He feels too short of breath to walk across his house. Admits to clear sputum production. Onset Date: 04/06/19 Duration: Getting Worse Location: Reports: Chest, Generalized Quality: Reports: Ache Severity: Moderate Improves with: Reports: None Worsens with: Reports: None Context: Reports: Sick Contact (possible) Associated Symptoms: Reports: No Other Symptoms Treatments [employer]: Reports: Breathing Treatments, Oxygen - Related Data Allergies Allergy/AdvReac Type Severity Reaction Status Date / Time No Known Allergies Allergy Verified 01/15/19 17:07 Home Meds: Home Meds Albuterol [Proventil Neb Soln] 2.5 mg NEB Q4HR PRN 07/29/15 [History] Budesonide [Pulmicort] 0.5 mg NEB BID 07/29/15 [History] Formoterol [Perforomist] 20 mcg NEB BID 07/29/15 [History] Ascorbate Calcium [Vitamin C] 500 mg PO DAILY 07/30/15 [History] Methotrexate 2.5 mg PO WEEKLY 07/30/15 [History] Albuterol [Ventolin HFA] 2 puff .XX Q4H 01/15/19 [History] Finasteride [Proscar] 5 mg PO .SUPPER 01/15/19 [History] Patient's Own Medication [Ptom] 1 cap PO DAILY 01/15/19 [History] Tamsulosin [Flomax] 0.4 mg PO .SUPPER 01/15/19 [History] Tofacitinib Citrate [Xeljanz Xr] 11 mg PO BEDTIME 01/15/19 [History] Umeclidinium [place] [Incruse Ellipta*] 1 puff INH DAILY 12/08/19 [History] Zinc Gluconate [Zinc] 50 mg PO DAILY 01/15/19 [History] Omeprazole 20 mg PO ACBREAKFAST 30 Days #30 cap.cr 01/24/19 [Rx] levoFLOXacin [Levaquin] 500 mg PO Q24H 5 Days #5 tablet 01/24/19 [Rx] predniSONE 40 mg PO WITHBREAKFAST 3 Days #3 tablet 01/24/19 [Rx] predniSONE [Prednisone] 5 mg PO DAILY 3 Days #3 tablet 01/24/19 [Rx] predniSONE [Prednisone] 10 mg PO DAILY 3 Days #3 tablet 01/24/19 [Rx] predniSONE [Prednisone] 20 mg PO DAILY 3 Days #3 tablet 01/24/19 [Rx] Past Medical History Cardiovascular History: Reports: Other (See Below) Other Cardiovascular History: left ventricle "slow" Respiratory History: Reports: COPD Genitourinary History: Reports: BPH - Infectious Disease History Infectious Disease History: Reports: None - Past Surgical History Cardiovascular Surgical History: Reports: None Respiratory Surgical History: Reports: None Dermatological Surgical History: Reports: Skin Biopsy Social & Family History - Family History Family Medical History: Noncontributory - Caffeine Use Caffeine Use: Reports: Coffee, Soda ED ROS GENERAL - Review of Systems Review Of Systems: Comprehensive ROS is negative, except as noted in HPI. ED EXAM, GENERAL - Physical Exam Exam: See Below Exam Limited By: No Limitations General Appearance: Alert, No Apparent Distress, Other (Chronically ill appearing) Eye Exam: Bilateral Eye: Normal Inspection Ears: Normal External Exam, Hearing Grossly Normal Nose: No Blood, Nasal Drainage (Mild/clear) Throat/Mouth: Normal Inspection, Normal Lips, Normal Teeth, Normal Gums, Normal Oropharynx, Normal Voice, No Airway Compromise Head: Atraumatic, Normocephalic Neck: Normal Inspection, Supple, Non-Tender, Full Range of Motion Respiratory/Chest: No Respiratory Distress, No Accessory Muscle Use, Decreased Breath Sounds, Crackles, Wheezing Cardiovascular: Regular Rate, Rhythm, No Edema, Tachycardia GI/Abdominal: Normal Bowel Sounds, Soft, Non-Tender, No Organomegaly, No Distention, No Abnormal Bruit, No Mass Back Exam: Normal Inspection Extremities: Normal Inspection, Normal Range of Motion, Non-Tender, Normal Capillary Refill, No Pedal Edema Neurological: Alert, Oriented, CN II-XII Intact, Normal Cognition, No Motor/ Sensory Deficits Psychiatric: Anxious Skin Exam: Warm, Dry, Intact, Normal Color, No Rash Course - Vital Signs Last Recorded V/S: Last Vital Signs Temp 99.2 F 04/09/19 12:30 Pulse 109 H 04/09/19 13:09 Resp 18 04/09/19 12:30 BP 140/65 04/09/19 12:30 Pulse Ox 91 L 04/09/19 12:30 - Orders/Labs/Meds Orders: Active Orders 24 hr Category Date Time Status Peripheral IV Care [RC] . DIRECTED Care 04/09/19 13:35 Ordered RT Aerosol Therapy [RC] ASDIRECTED Care 04/09/19 13:03 Active Chest 2V [CR] Urgent Exams 04/09/19 12:37 Ordered CULTURE BLOOD [BC] Stat Lab 04/09/19 12:55 Received Sodium Chloride 0.9% [Saline Flush] Med 04/09/19 13:35 Ordered 10 ml FLUSH ASDIRECTED PRN Peripheral IV Insertion Adult [OM.PC] Stat Oth 04/09/19 13:35 Ordered Medication Orders Sodium Chloride (Saline Flush) 10 ml FLUSH ASDIRECTED PRN PRN Reason: Keep Vein Open Labs: Laboratory Tests 04/09/19 04/09/19 04/09/19 Range/Units 12:55 12:55 12:55 WBC 9.2 (5.0-10.0) 10^3/uL RBC 4.08 L (4.6-6.2) 10^6/uL Hgb 13.4 L (14.0-18.0) g/dL Hct 40.6 (40.0-54.0) % MCV 99.5 (80-100) fL MCH 32.8 (27.0-34.0) pg MCHC 33.0 (33.0-35.0) g/dL Plt Count 201 D (150-450) 10^3/uL Neut % (Auto) 84.5 H (42.2-75.2) % Lymph % (Auto) 7.5 L (20.5-50.1) % [place] % (Auto) 7.4 (2-8) % Eos % (Auto) 0.3 L (1.0-3.0) % Baso % (Auto) 0.3 (0.0-1.0) % Sodium 136 (135-145) mmol/L Potassium 4.1 (3.6-5.0) mmol/L Chloride 101 (101-111) mmol/L Carbon Dioxide 26.0 (21.0-31.0) mmol/L Anion Gap 13.1 BUN 11 (7-18) mg/dL Creatinine 1.1 (0.6-1.3) mg/dL Est Cr Clr Drug Dosing 45.26 mL/min Estimated GFR (MDRD) > 60 BUN/Creatinine Ratio 10.00 Glucose 109 H (74-105) mg/dL Lactic Acid 1.6 (0.5-2.0) mmol/L Calcium 9.6 (8.4-10.2) mg/dl Total Bilirubin 0.7 (0.2-1.0) mg/dL AST 18 (10-42) IU/L ALT 20 (10-60) IU/L Alkaline Phosphatase 82 (42-121) IU/L Total Protein 7.3 (6.7-8.2) g/dl Albumin 3.9 (3.2-5.5) g/dl Globulin 3.4 Albumin/Globulin Ratio 1.15 Influenza A: Positive. Influenza B: Negative. Meds: Medications Generic Name Dose Route Start Last Admin Trade Name Freq PRN Reason Stop Dose Admin Sodium Chloride 10 ml 04/09/19 13:35 Saline Flush FLUSH ASDIRECTED PRN Keep Vein Open Discontinued Medications Generic Name Dose Route Start Last Admin Trade Name Freq PRN Reason Stop Dose Admin Albuterol/Ipratropium 3 ml 04/09/19 13:03 04/09/19 13:13 Duoneb 3.0-0.5 Mg/3 Ml NEB 04/09/19 13:04 3 ml ONETIME ONE Administration Methylprednisolone Sodium Succinate 125 mg 04/09/19 13:35 Solu-Medrol IVPUSH 04/09/19 13:36 ONETIME ONE Oseltamivir Phosphate 75 mg 04/09/19 13:35 Tamiflu PO 04/09/19 13:36 ONETIME ONE - Radiology Interpretation Free Text/Narrative:: CXR: chronic appearing COPD changes, no acute infiltrates compared to previous study. - Re-Assessments/Exams Free Text/Narrative Re-Assessment/Exam: 04/09/19 13:43 Pt with chronic COPD, increasing dyspnea and increasing oxygen demand, now with Influenza A. Plan to admit pt to observation, Dr. Tee accepts pt for admission. Departure - Departure Time of Disposition: 13:44 (admitted to Dr. Tee) Disposition: Refer to Observation Condition: Fair Clinical Impression: Acute exacerbation of chronic obstructive pulmonary disease (COPD), Influenza A - Discharge Information *PRESCRIPTION DRUG MONITORING PROGRAM REVIEWED*: Not Applicable *COPY OF PRESCRIPTION DRUG MONITORING REPORT IN PATIENT DIANE: Not Applicable Forms: ED Department Discharge Sepsis Event Note - Evaluation Sepsis Screening Result: No Definite Risk - Focused Exam Vital Signs: Vital Signs Temp Pulse Resp BP Pulse Ox 04/09/19 13:09 109 H 04/09/19 12:30 99.2 F 80 18 140/65 91 L Date Exam was Performed: 04/09/19 Time Exam was Performed: 13:41 - My Orders Last 24 Hours: My Active Orders 04/09/19 12:37 Chest 2V [CR] Urgent 04/09/19 12:55 CULTURE BLOOD [BC] Stat 04/09/19 13:03 RT Aerosol Therapy [RC] ASDIRECTED 04/09/19 13:35 Peripheral IV Care [RC] . DIRECTED Sodium Chloride 0.9% [Saline Flush] 10 ml FLUSH ASDIRECTED PRN Peripheral IV Insertion Adult [OM.PC] Stat - Assessment/Plan Last 24 Hours: My Active Orders 04/09/19 12:37 Chest 2V [CR] Urgent 04/09/19 12:55 CULTURE BLOOD [BC] Stat 04/09/19 13:03 RT Aerosol Therapy [RC] ASDIRECTED 04/09/19 13:35 Peripheral IV Care [RC] . DIRECTED Sodium Chloride 0.9% [Saline Flush] 10 ml FLUSH ASDIRECTED PRN Peripheral IV Insertion Adult [OM.PC] Stat I have read and agree with the documentation that has been completed regarding this visit. By signing this record, I attest that the documentation was completed in my physical presence and is an accurate record of the encounter.
[2019-04-09] MEDS: Sodium Chloride 0.9% 10 ML Syringe FLUSH PRN ×2 (14:08→20:31)
[2019-04-09] MEDS ORDERED: Acetaminophen 325 MG Tab PO PRN (15:03)
[2019-04-09] MEDS ORDERED: Albuterol 0.083% 2.5 MG/3 ML Neb Soln NEB PRN ×2 (15:03→15:06)
[2019-04-09] MEDS ORDERED: Polyethylene Glycol 3350 Powder 17 GM Packet PO PRN (15:03)
[2019-04-09] MEDS ORDERED: Azithromycin 250 MG Tab PO ONE (15:10)
[2019-04-09] MEDS ORDERED: Acetaminophen 325 MG Tab PO ONE (15:18)
--- NOTE | 2019-04-09 15:23 | PCM.HP ---
H&P History of Present Illness - General Date of Service: 04/09/19 Admit Problem/Dx: Admission Diagnosis/Problem Admission Diagnosis/Problem COPD with acute lower respiratory infection Source of Information: Patient, Family, Provider - History of Present Illness Initial Comments - Free Text/Narative: Mr. Guillory is a 79-year-old male with a medical history significant for COPD , diastolic dysfunction, prostate cancer, sleep-related hypoxia, and prior history of tobacco use who presented to the ED with complaints of shortness of breath. Patient and daughter at bedside report that patient was in his normal self around 8 PM last night. Patient reports that he woke up this morning with shortness of breath and productive cough with clear sputum production. Reports the cough is new. Also reports shaking chills and feeling febrile. He reports that he was wheezing and had respiratory distress. States that he could not take a few steps without stopping to catch his breath. He reports chest pain with coughing. Reports that he had nausea this morning but did not throw up. Reports that he had his flu shot this year. Denies any sick contacts besides being in the eye clinic on . He denies headache, diarrhea, constipation , dysuria, materia, edema, PND, orthopnea, or any other symptoms. In the The ED, patient was noted to have O2 saturation of 87% on room air. It was 109. Respiratory rate was 24. Blood pressure was 137/64. WBC was 9.2 and hemoglobin was 13.4 with platelet count of 201. BMP was unremarkable. Influenza screen came back positive for influenza A. - Related Data Allergies/Adverse Reactions: Allergies Allergy/AdvReac Type Severity Reaction Status Date / Time No Known Allergies Allergy Verified 01/15/19 17:07 Home Medications: Home Meds Albuterol [Proventil Neb Soln] 2.5 mg NEB Q4HR PRN 07/29/15 [History] Budesonide [Pulmicort] 0.5 mg NEB BID 07/29/15 [History] Formoterol [Perforomist] 20 mcg NEB BID 07/29/15 [History] Ascorbate Calcium [Vitamin C] 500 mg PO DAILY 07/30/15 [History] Albuterol [Ventolin HFA] 2 puff .XX Q4H 01/15/19 [History] Finasteride [Proscar] 5 mg PO .SUPPER 01/15/19 [History] Patient's Own Medication [Ptom] 1 cap PO DAILY 01/15/19 [History] Tamsulosin [Flomax] 0.4 mg PO .SUPPER 01/15/19 [History] Tofacitinib Citrate [Xeljanz Xr] 11 mg PO BEDTIME 01/15/19 [History] Umeclidinium [place] [Incruse Ellipta*] 1 puff INH DAILY 01/15/19 [History] Zinc Gluconate [Zinc] 50 mg PO DAILY 01/15/19 [History] predniSONE [Prednisone] 5 mg PO DAILY 3 Days #3 tablet 01/24/19 [Rx] Calcium Carbonate/Vitamin D3 [Calcium 600-Vit D3 500 Softgel] 2 each PO DAILY [History] Past Medical History Cardiovascular History: Reports: Other (See Below) Other Cardiovascular History: left ventricle "slow" Respiratory History: Reports: COPD Genitourinary History: Reports: BPH Musculoskeletal History: Reports: RA Immunologic History: Reports: Immunosuppression Other Immunologic History: RA medications Oncologic (Cancer) History: Reports: Prostate - Infectious Disease History Infectious Disease History: Reports: None - Past Surgical History Cardiovascular Surgical History: Reports: None Respiratory Surgical History: Reports: None GI Surgical History: Reports: Hernia, Inguinal Dermatological Surgical History: Reports: Skin Biopsy Social & Family History - Family History Family Medical History: Noncontributory - Tobacco Use Smoking Status *Q: Former Smoker Used Tobacco, but Quit: Yes Month/Year Tobacco Last Used: 04/2009 - Caffeine Use Caffeine Use: Reports: Coffee - Recreational Drug Use Recreational Drug Use: No H&P Review of Systems - Review of Systems: Review Of Systems: Comprehensive ROS is negative, except as noted in HPI. Exam - Exam Exam: See Below - Vital Signs Vital Signs: Last Vital Signs Temp 101.2 F H 04/09/19 14:27 Pulse 89 04/09/19 14:27 Resp 24 H 04/09/19 14:27 BP 137/64 04/09/19 14:27 Pulse Ox 94 L 04/09/19 15:03 Weight: 173 lb 3.2 oz - Exam Quality Assessment: Supplemental Oxygen (2L via nasal cannula. ) General: Alert, Oriented, Cooperative HEENT: Conjunctiva Clear, EOMI, Hearing Intact, Mucosa Moist & [place] Neck: Supple, Trachea Midline Lungs: Rhonchi, Wheezing Cardiovascular: Regular Rhythm, Tachycardia GI/Abdominal Exam: Normal Bowel Sounds, Soft, Non-Tender, No Distention Extremities: Normal Inspection, Non-Tender, No Pedal Edema Peripheral Pulses: 2+: Radial (L), Radial (R), Dorsalis Pedis (L), Dorsalis Pedis (R) Skin: Warm, Dry, Intact Neuro Extensive - Mental Status: Alert, Oriented x3, Normal Mood/Affect, Normal Cognition Psychiatric: Alert, Normal Affect, Normal Mood - Patient Data Lab Results Last 24 hrs: Laboratory Results - last 24 hr 04/09/19 04/09/19 04/09/19 Range/Units 12:55 12:55 12:55 WBC 9.2 (5.0-10.0) 10^3/uL RBC 4.08 L (4.6-6.2) 10^6/uL Hgb 13.4 L (14.0-18.0) g/dL Hct 40.6 (40.0-54.0) % MCV 99.5 (80-100) fL MCH 32.8 (27.0-34.0) pg MCHC 33.0 (33.0-35.0) g/dL Plt Count 201 D (150-450) 10^3/uL Neut % (Auto) 84.5 H (42.2-75.2) % Lymph % (Auto) 7.5 L (20.5-50.1) % [place] % (Auto) 7.4 (2-8) % Eos % (Auto) 0.3 L (1.0-3.0) % Baso % (Auto) 0.3 (0.0-1.0) % Sodium 136 (135-145) mmol/L Potassium 4.1 (3.6-5.0) mmol/L Chloride 101 (101-111) mmol/L Carbon Dioxide 26.0 (21.0-31.0) mmol/L Anion Gap 13.1 BUN 11 (7-18) mg/dL Creatinine 1.1 (0.6-1.3) mg/dL Est Cr Clr Drug Dosing 45.26 mL/min Estimated GFR (MDRD) > 60 BUN/Creatinine Ratio 10.00 Glucose 109 H (74-105) mg/dL Lactic Acid 1.6 (0.5-2.0) mmol/L Calcium 9.6 (8.4-10.2) mg/dl Total Bilirubin 0.7 (0.2-1.0) mg/dL AST 18 (10-42) IU/L ALT 20 (10-60) IU/L Alkaline Phosphatase 82 (42-121) IU/L Total Protein 7.3 (6.7-8.2) g/dl Albumin 3.9 (3.2-5.5) g/dl Globulin 3.4 Albumin/Globulin Ratio 1.15 Result Diagrams: 04/09/19 12:55 04/09/19 12:55 Dave Results Last 24 hrs: Microbiology 04/09/19 12:15 Influenza Type A Antigen Screen - Final Nasal, Left Positive Influenza A Ag Influenza Type B Antigen Screen - Final NEGATIVE INFLUENZA B VIRUS AG REFERENCE RANGE: NEGATIVE - Problem List (1) Acute exacerbation of chronic obstructive pulmonary disease (COPD) SNOMED Code(s): 601422449 ICD Code: J44.1 - CHRONIC OBSTRUCTIVE PULMONARY DISEASE W (ACUTE) EXACERBATION Status: Acute Current Visit: No (2) Acute on chronic respiratory failure SNOMED Code(s): 09666139 ICD Code: J96.20 - ACUTE AND CHR RESP FAILURE, UNSP W HYPOXIA OR HYPERCAPNIA Status: Acute Current Visit: No Qualifiers: Respiratory failure complication: hypoxia Qualified Code(s): J96.21 - Acute and chronic respiratory failure with hypoxia (3) Influenza A SNOMED Code(s): 473394704 ICD Code: J10.1 - FLU DUE TO OTH IDENT INFLUENZA VIRUS W OTH RESP MANIFEST Status: Acute Current Visit: No Problem List Initiated/Reviewed/Updated: Yes Orders Last 24hrs: Active Orders 24 hr Category Date Time Status Admission Diagnosis [ADT] Stat ADT 04/09/19 13:44 Ordered Admission Status [Patient Status] [ADT] Routine ADT 04/09/19 13:44 Active Ambulate [RC] ASDIRECTED Care 04/09/19 15:03 Ordered Intake and Output [RC] QSHIFT Care 04/09/19 15:04 Ordered Oxygen Therapy [RC] PRN Care 04/09/19 15:03 Ordered RT Aerosol Therapy [RC] ASDIRECTED Care 04/09/19 13:03 Active VTE/DVT Education [RC] PER UNIT ROUTINE Care 04/09/19 15:03 Ordered Vital Signs [RC] Q4H Care 04/09/19 15:03 Ordered 2 Gram Sodium Diet [DIET] Diet 04/09/19 Dinner Ordered Chest 2V [CR] Urgent Exams 04/09/19 12:37 Ordered CULTURE BLOOD [BC] Stat Lab 04/09/19 12:55 Received Acetaminophen [Tylenol] Med 04/09/19 15:03 Ordered 650 mg PO Q4H PRN Albuterol [Proventil Neb Soln] Med 04/09/19 15:03 Ordered 2.5 mg NEB Q2H PRN Albuterol [Proventil Neb Soln] Med 04/09/19 15:06 Ordered 2.5 mg NEB Q4HR PRN Albuterol/Ipratropium [DuoNeb 3.0-0.5 MG/3 ML] Med 04/09/19 15:15 Ordered 3 ml NEB Q4H Azithromycin [Zithromax] Med 04/09/19 15:10 Once 500 mg PO ONETIME ONE Budesonide [Pulmicort] Med 04/09/19 21:00 Ordered 0.5 mg NEB BID Calcium Carbonate/Vitamin D3 [Calcium 600-Vit D3 500 Med 04/10/19 09:00 Ordered Softgel] 2 each PO DAILY Enoxaparin [Lovenox] Med 04/10/19 09:00 Ordered 40 mg SUBCUT DAILY Finasteride [Proscar] Med 04/09/19 15:15 Ordered 5 mg PO .SUPPER Formoterol [Perforomist] Med 04/09/19 21:00 Ordered 20 mcg NEB BID Oseltamivir [Tamiflu] Med 04/10/19 09:00 Ordered 75 mg PO DAILY Patient's Own Medication [Ptom] Med 04/10/19 09:00 Ordered 1 cap PO DAILY Sodium Chloride 0.9% [Saline Flush] Med 04/09/19 13:35 Active 10 ml FLUSH ASDIRECTED PRN Tamsulosin [Flomax] Med 04/09/19 15:15 Ordered 0.4 mg PO .SUPPER Tofacitinib Citrate [Xeljanz Xr] Med 04/09/19 21:00 Ordered 11 mg PO BEDTIME Umeclidinium [place] [Incruse Ellipta*] Med 04/10/19 09:00 Ordered 1 puff INH DAILY Zinc Gluconate [Zinc] Med 04/10/19 09:00 Ordered 50 mg PO DAILY polyethylene glycoL 3350 [MiraLAX] Med 04/09/19 15:03 Ordered 17 gm PO DAILY PRN predniSONE Med 04/09/19 15:15 Ordered 40 mg PO DAILY Peripheral IV Insertion Adult [OM.PC] Stat Oth 04/09/19 13:35 Ordered Resuscitation Status Routine Resus Stat 04/09/19 15:03 Ordered Medication Orders Acetaminophen (Tylenol) 650 mg PO Q4H PRN PRN Reason: Pain (mild 1-3) Albuterol (Proventil Neb Soln) 2.5 mg NEB Q2H PRN PRN Reason: shortness of breath/wheezing Albuterol (Proventil Neb Soln) 2.5 mg NEB Q4HR PRN PRN Reason: Dyspnea Albuterol/Ipratropium (Duoneb 3.0-0.5 Mg/3 Ml) 3 ml NEB Q4H ANNA Azithromycin (Zithromax) 500 mg PO ONETIME ONE Stop: 04/09/19 15:11 Budesonide (Pulmicort) 0.5 mg NEB BID ANNA Enoxaparin Sodium (Lovenox) 40 mg SUBCUT DAILY ANNA Finasteride (Proscar) 5 mg PO .SUPPER [facility] Non-Formulary Medication (Calcium Carbonate/Vitamin D3 [Calcium 600-Vit D3 500 Softgel]) 2 each PO DAILY [facility] Non-Formulary Medication (Formoterol [Perforomist]) 20 mcg NEB BID [facility] Non-Formulary Medication (Tofacitinib Citrate [Xeljanz Xr]) 11 mg PO BEDTIME ANNA Non-Formulary Medication (Umeclidinium [place] [Incruse Ellipta*]) 1 puff INH DAILY [facility] Non-Formulary Medication (Zinc Gluconate [Zinc]) 50 mg PO DAILY [facility] Oseltamivir Phosphate (Tamiflu) 75 mg PO DAILY [facility] Stop: 04/14/19 09:01 Patient Own Medication (Ptom) each PO DAILY [facility] Polyethylene Glycol (Miralax) 17 gm PO DAILY PRN PRN Reason: Constipation Prednisone (Prednisone) 40 mg PO DAILY [facility] Stop: 04/14/19 15:16 Sodium Chloride (Saline Flush) 10 ml FLUSH ASDIRECTED PRN PRN Reason: Keep Vein Open Last Admin: 04/09/19 14:08 Dose: 10 ml Tamsulosin HCl (Flomax) 0.4 mg PO .SUPPER [facility] Assessment/Plan Comment:: #Influenza A #Acute COPD exacerbation #Acute respiratory failure with hypoxia: The ED with worsening shortness of breath. Was found to have O2 saturation of 87% on room air. O2 saturation improved to 94% on 2 L of oxygen. Patient has new cough with worsening shortness of breath. Also with sputum production. COPD exacerbation and respiratory failure likely due to influenza A. -Supplemental oxygen, titrate to SPO2 of 88% to 92% -Prednisone, azithromycin, and Tamiflu -Nebulized and inhaled treatments -Incentive spirometer -Encourage ambulation #History of diastolic dysfunction -Not in any acute exacerbation -Not on any diuretics at home -Continue to monitor -Cautious use of fluids, #BPH: -Continue finasteride and tamsulosin DVT prophylaxis: Lovenox GI prophylaxis: Cardiac diet CODE STATUS: Full code
[2019-04-09] MEDS: Albuterol/Ipratropium 3.0-0.5 MG/3 ML Neb Soln NEB SCH ×3 (15:39→23:25)
[2019-04-09] MEDS: predniSONE 20 MG Tab PO SCH (15:40)
[2019-04-09] MEDS ORDERED: Tamsulosin 0.4 MG Cap.ER PO SCH (17:00)
[2019-04-09] MEDS ORDERED: Finasteride 5 MG Tab PO SCH (17:00)
[2019-04-09] MEDS: Finasteride 5 MG Tab **OWN MED PO SCH (17:30)
[2019-04-09] MEDS: Tamsulosin 0.4 MG Cap.ER **OWN MED PO SCH (17:30)
[2019-04-09] MEDS: BUDESONIDE 0.5 MG/2 ML NEB SCH (20:15)
[2019-04-09] MEDS ORDERED: TOFACITINIB CITRATE 11 MG PO SCH (21:00)
[2019-04-09] MEDS ORDERED: Budesonide 0.5 MG/2 ML Neb Susp NEB SCH (21:00)
[2019-04-09] MEDS ORDERED: PERFOROMIST 20 MCG/2 ML NEB SCH (21:00)
[2019-04-10] MEDS: Albuterol/Ipratropium 3.0-0.5 MG/3 ML Neb Soln NEB SCH ×6 (03:22→22:21)
[2019-04-10] MEDS ORDERED: Oseltamivir 75 MG Cap PO SCH ×2 (09:00→21:00)
[2019-04-10] MEDS ORDERED: Patient's Own Medication 1 Each PO SCH (09:00)
[2019-04-10] MEDS ORDERED: Non-Formulary Medication 1 Each (Umeclidinium Bromide [Incruse Ellipta*] 1 PUFF) INH SCH (09:00)
[2019-04-10] MEDS ORDERED: Calcium Carbonate/Vitamin D3 1250 MG-200 Unit Tab PO SCH (09:00)
[2019-04-10] MEDS: predniSONE 20 MG Tab PO SCH (09:11)
[2019-04-10] MEDS: Enoxaparin 40 MG/0.4 ML Syringe SUBCUT SCH (09:11)
[2019-04-10] MEDS: CHOLECALCIFEROL 5000 UNIT PO SCH (09:13)
[2019-04-10] MEDS: INCRUSE ELLIPTA 62.5 MCG INH SCH (09:13)
[2019-04-10] MEDS: CALCIUM PO SCH (09:13)
[2019-04-10] MEDS: ZINC 50 MG PO SCH (09:15)
[2019-04-10] MEDS: Sodium Chloride 0.9% 10 ML Syringe FLUSH PRN ×2 (09:16→20:44)
[2019-04-10] MEDS: BUDESONIDE 0.5 MG/2 ML NEB SCH ×2 (09:39→22:24)
--- NOTE | 2019-04-10 10:05 | PCM.PN ---
- General Info Date of Service: 04/10/19 Admission Dx/Problem (Free Text): Admission Diagnosis/Problem Admission Diagnosis/Problem COPD with acute lower respiratory infection Subjective Update: Reports that he continues to have shortness of breath and cough with some sputum production. Denies fevers, chills, chest pain, n/v/d/c, dysuria, or any other new symptoms. - Review of Systems General: Reports: No Symptoms HEENT: Reports: No Symptoms Pulmonary: Reports: Shortness of Breath, Cough, Sputum, Wheezing Cardiovascular: Reports: No Symptoms Gastrointestinal: Reports: No Symptoms Genitourinary: Reports: No Symptoms Musculoskeletal: Reports: No Symptoms Skin: Reports: No Symptoms Neurological: Reports: No Symptoms Psychiatric: Reports: No Symptoms - Patient Data Vitals - Most Recent: Last Vital Signs Temp 99.0 F 04/10/19 08:09 Pulse 99 04/10/19 08:09 Resp 20 04/10/19 08:09 BP 116/62 04/10/19 08:09 Pulse Ox 98 04/10/19 08:09 Weight - Most Recent: 173 lb 3.2 oz I&O - Last 24 Hours: Intake & Output 04/09/19 04/10/19 04/10/19 22:59 06:59 14:59 Intake Total 750 375 320 Output Total 150 Balance 750 225 320 Lab Results Last 24 Hours: Laboratory Results - last 24 hr 04/09/19 04/09/19 04/09/19 Range/Units 12:55 12:55 12:55 WBC 9.2 (5.0-10.0) 10^3/uL RBC 4.08 L (4.6-6.2) 10^6/uL Hgb 13.4 L (14.0-18.0) g/dL Hct 40.6 (40.0-54.0) % MCV 99.5 (80-100) fL MCH 32.8 (27.0-34.0) pg MCHC 33.0 (33.0-35.0) g/dL Plt Count 201 D (150-450) 10^3/uL Neut % (Auto) 84.5 H (42.2-75.2) % Lymph % (Auto) 7.5 L (20.5-50.1) % [place] % (Auto) 7.4 (2-8) % Eos % (Auto) 0.3 L (1.0-3.0) % Baso % (Auto) 0.3 (0.0-1.0) % Sodium 136 (135-145) mmol/L Potassium 4.1 (3.6-5.0) mmol/L Chloride 101 (101-111) mmol/L Carbon Dioxide 26.0 (21.0-31.0) mmol/L Anion Gap 13.1 BUN 11 (7-18) mg/dL Creatinine 1.1 (0.6-1.3) mg/dL Est Cr Clr Drug Dosing 45.26 mL/min Estimated GFR (MDRD) > 60 BUN/Creatinine Ratio 10.00 Glucose 109 H (74-105) mg/dL Lactic Acid 1.6 (0.5-2.0) mmol/L Calcium 9.6 (8.4-10.2) mg/dl Total Bilirubin 0.7 (0.2-1.0) mg/dL AST 18 (10-42) IU/L ALT 20 (10-60) IU/L Alkaline Phosphatase 82 (42-121) IU/L Total Protein 7.3 (6.7-8.2) g/dl Albumin 3.9 (3.2-5.5) g/dl Globulin 3.4 Albumin/Globulin Ratio 1.15 Dave Results Last 24 Hours: Microbiology 04/09/19 12:15 Influenza Type A Antigen Screen - Final Nasal, Left Positive Influenza A Ag Influenza Type B Antigen Screen - Final NEGATIVE INFLUENZA B VIRUS AG REFERENCE RANGE: NEGATIVE Med Orders - Current: Current Medications Acetaminophen (Tylenol) 650 mg PO Q4H PRN PRN Reason: Pain (mild 1-3) Albuterol (Proventil Neb Soln) 2.5 mg NEB Q2H PRN PRN Reason: shortness of breath/wheezing Albuterol/Ipratropium (Duoneb 3.0-0.5 Mg/3 Ml) 3 ml NEB Q4HRRT [facility] Budesonide (Pulmicort) 0.5 mg NEB BID [facility] Last Admin: 04/10/19 09:39 Dose: 0.5 mg Enoxaparin Sodium (Lovenox) 40 mg SUBCUT DAILY [facility] Last Admin: 04/10/19 09:11 Dose: 40 mg Finasteride (Proscar) 5 mg PO ACDINNER [facility] Last Admin: 04/09/19 17:30 Dose: 5 mg Zinc 50 Mg Own Med () 0 mg PO DAILY [facility] Last Admin: 04/10/19 09:15 Dose: 50 mg Incruse Ellipta 62.5 (Mcg Own Med) 0 each INH DAILY [facility] Last Admin: 04/10/19 09:13 Dose: 1 each Calcium 1200 Mg/ Vit D3 5000 Units Own Med 0 each PO DAILY [facility] Last Admin: 04/10/19 09:13 Dose: 1 each Perforomist 20 Mcg/2 (Ml Own Med) 0 mcg NEB BIDRT [facility] Oseltamivir Phosphate (Tamiflu) 75 mg PO DAILY [facility] Stop: 04/14/19 09:01 Last Admin: 04/10/19 09:11 Dose: 75 mg Polyethylene Glycol (Miralax) 17 gm PO DAILY PRN PRN Reason: Constipation Prednisone (Prednisone) 40 mg PO DAILY [facility] Stop: 04/14/19 15:16 Last Admin: 04/10/19 09:11 Dose: 40 mg Sodium Chloride (Saline Flush) 10 ml FLUSH ASDIRECTED PRN PRN Reason: Keep Vein Open Last Admin: 04/10/19 09:16 Dose: 10 ml Tamsulosin HCl (Flomax) 0.4 mg PO ACDINNER [facility] Last Admin: 04/09/19 17:30 Dose: 0.4 mg Discontinued Medications Acetaminophen (Tylenol) 650 mg PO NOW ONE Stop: 04/09/19 15:19 Last Admin: 04/09/19 15:39 Dose: 650 mg Albuterol (Proventil Neb Soln) 2.5 mg NEB Q4HR PRN PRN Reason: Dyspnea Albuterol/Ipratropium (Duoneb 3.0-0.5 Mg/3 Ml) 3 ml NEB ONETIME ONE Stop: 04/09/19 13:04 Last Admin: 04/09/19 13:13 Dose: 3 ml Albuterol/Ipratropium (Duoneb 3.0-0.5 Mg/3 Ml) 3 ml NEB Q4H [facility] Last Admin: 04/10/19 07:18 Dose: 3 ml Azithromycin (Zithromax) 500 mg PO ONETIME ONE Stop: 04/09/19 15:11 Last Admin: 04/09/19 15:40 Dose: 500 mg Budesonide (Pulmicort) 0.5 mg NEB BID [facility] Calcium Carbonate (Calcium Carbonate/Vitamin D 1250 Mg-200 Unit) 2 tab PO DAILY [facility] Finasteride (Proscar) 5 mg PO ACDINNER [facility] Methylprednisolone Sodium Succinate (Solu-Medrol) 125 mg IVPUSH ONETIME ONE Stop: 04/09/19 13:36 Last Admin: 04/09/19 14:08 Dose: 125 mg Perforomist 20 Mcg/2 (Ml Own Med) 0 mcg NEB BID [facility] Last Admin: 04/09/19 20:16 Dose: 20 mcg Non-Formulary Medication (Tofacitinib Citrate [Xeljanz Xr]) 11 mg PO BEDTIME [facility] Non-Formulary Medication (Umeclidinium [place] [Incruse Ellipta*]) 1 puff INH DAILY [facility] Oseltamivir Phosphate (Tamiflu) 75 mg PO ONETIME ONE Stop: 04/09/19 13:36 Last Admin: 04/09/19 14:07 Dose: 75 mg Patient Own Medication (Ptom) each PO DAILY [facility] Tamsulosin HCl (Flomax) 0.4 mg PO ACDINNER [facility] - Exam General: Alert, Oriented, Cooperative, No Acute Distress HEENT: Pupils Equal, Pupils Reactive, Mucous Membr. Moist/[place] Neck: Supple Lungs: Decreased Breath Sounds, Wheezing Cardiovascular: Regular Rhythm, Tachycardia GI/Abdominal Exam: Normal Bowel Sounds, Soft, Non-Tender, No Distention Extremities: Normal Inspection, Non-Tender, No Pedal Edema Peripheral Pulses: 2+: Radial (L), Radial (R), Dorsalis Pedis (L), Dorsalis Pedis (R) Skin: Warm, Dry, Intact Neurological: No New Focal Deficit Psy/Mental Status: Alert, Normal Affect, Normal Mood Sepsis Event Note - Evaluation Sepsis Screening Result: No Definite Risk - Focused Exam Vital Signs: Vital Signs Temp Pulse Resp BP Pulse Ox Pulse Ox 04/10/19 08:09 99.0 F 99 20 116/62 98 04/10/19 07:18 90 98 04/10/19 03:30 97 97 04/10/19 03:00 99.6 F 89 24 H 122/69 98 04/09/19 23:30 85 97 04/09/19 23:00 98.9 F 85 24 H 126/67 97 Date Exam was Performed: 04/10/19 Time Exam was Performed: 10:00 - Problem List & Annotations (1) Acute exacerbation of chronic obstructive pulmonary disease (COPD) SNOMED Code(s): 162798436 Code(s): J44.1 - CHRONIC OBSTRUCTIVE PULMONARY DISEASE W (ACUTE) EXACERBATION Status: Acute Current Visit: No (2) Acute on chronic respiratory failure SNOMED Code(s): 72178438 Code(s): J96.20 - ACUTE AND CHR RESP FAILURE, UNSP W HYPOXIA OR HYPERCAPNIA Status: Acute Current Visit: No Qualifiers: Respiratory failure complication: hypoxia Qualified Code(s): J96.21 - Acute and chronic respiratory failure with hypoxia (3) Influenza A SNOMED Code(s): 461848144 Code(s): J10.1 - FLU DUE TO OTH IDENT INFLUENZA VIRUS W OTH RESP MANIFEST Status: Acute Current Visit: No - Problem List Review Problem List Initiated/Reviewed/Updated: Yes - My Orders Last 24 Hours: My Active Orders 04/09/19 15:03 Ambulate [RC] ASDIRECTED Oxygen Therapy [RC] PRN VTE/DVT Education [RC] PER UNIT ROUTINE Vital Signs [RC] Q4H Acetaminophen [Tylenol] 650 mg PO Q4H PRN Albuterol [Proventil Neb Soln] 2.5 mg NEB Q2H PRN polyethylene glycoL 3350 [MiraLAX] 17 gm PO DAILY PRN Resuscitation Status Routine 04/09/19 15:04 Intake and Output [RC] QSHIFT 04/09/19 15:15 predniSONE 40 mg PO DAILY 04/09/19 17:00 Finasteride [Proscar] 5 mg PO ACDINNER Tamsulosin [Flomax] 0.4 mg PO ACDINNER 04/09/19 21:00 Budesonide [Pulmicort] 0.5 mg NEB BID 04/09/19 Dinner 2 Gram Sodium Diet [DIET] 04/10/19 09:00 Enoxaparin [Lovenox] 40 mg SUBCUT DAILY Non-Formulary Medication [NF Drug] 0 each INH DAILY Non-Formulary Medication [NF Drug] 0 each PO DAILY Oseltamivir [Tamiflu] 75 mg PO DAILY Zinc Gluconate [Zinc] 0 mg PO DAILY 04/10/19 11:00 Albuterol/Ipratropium [DuoNeb 3.0-0.5 MG/3 ML] 3 ml NEB Q4HRRT 04/10/19 18:00 Formoterol [Perforomist] 0 mcg NEB BIDRT - Plan Plan:: #Influenza A #Acute COPD exacerbation: Continues to have cough with sputum production and shortness of breath. Lungs are wheezy #Acute respiratory failure with hypoxia: The ED with worsening shortness of breath. Was found to have O2 saturation of 87% on room air. O2 saturation improved to 94% on 2 L of oxygen. Patient has new cough with worsening shortness of breath. Also with sputum production. COPD exacerbation and respiratory failure likely due to influenza A. -Supplemental oxygen, titrate to SPO2 of 88% to 92% -Continue Prednisone, azithromycin, and Tamiflu -Continue Nebulized and inhaled treatments -Incentive spirometer -Encourage ambulation - Tachycardia likely related to albuterol. #History of diastolic dysfunction -Not in any acute exacerbation -Not on any diuretics at home -Continue to monitor -Cautious use of fluids, #BPH: -Continue finasteride and tamsulosin DVT prophylaxis: Lovenox GI prophylaxis: Cardiac diet CODE STATUS: Full code
[2019-04-10] MEDS: ROFLUMILAST 500 MCG PO SCH (11:31)
[2019-04-10] MEDS: PERFOROMIST 20 MCG/2 ML NEB SCH (18:01)
[2019-04-10] MEDS: Finasteride 5 MG Tab **OWN MED PO SCH (18:02)
[2019-04-10] MEDS: Tamsulosin 0.4 MG Cap.ER **OWN MED PO SCH (18:02)
[2019-04-10] MEDS: Oseltamivir 30 MG Cap PO SCH (20:44)
[2019-04-11] MEDS: Albuterol/Ipratropium 3.0-0.5 MG/3 ML Neb Soln NEB SCH ×3 (03:09→11:45)
[2019-04-11] MEDS: PERFOROMIST 20 MCG/2 ML NEB SCH (07:58)
[2019-04-11] MEDS: Enoxaparin 40 MG/0.4 ML Syringe SUBCUT SCH (09:51)
[2019-04-11] MEDS: Oseltamivir 30 MG Cap PO SCH (09:51)
[2019-04-11] MEDS: predniSONE 20 MG Tab PO SCH (09:51)
[2019-04-11] MEDS: CALCIUM PO SCH (09:52)
[2019-04-11] MEDS: ROFLUMILAST 500 MCG PO SCH (09:52)
[2019-04-11] MEDS: ZINC 50 MG PO SCH (09:52)
[2019-04-11] MEDS: CHOLECALCIFEROL 5000 UNIT PO SCH (09:52)
[2019-04-11] MEDS: INCRUSE ELLIPTA 62.5 MCG INH SCH (09:54)
[2019-04-11] MEDS: Sodium Chloride 0.9% 10 ML Syringe FLUSH PRN (09:54)
[2019-04-11] MEDS: BUDESONIDE 0.5 MG/2 ML NEB SCH (10:17)
--- NOTE | 2019-04-11 10:31 | PCM.DCSUM1 ---
Discharge Summary - Hospital Course Free Text/Narrative:: Mr. Guillory is a 79-year-old male with a medical history significant for COPD , diastolic dysfunction, prostate cancer, sleep-related hypoxia, and prior history of tobacco use who was admitted for acute COPD exacerbation due to influenza infection. He was started on tamiflu, azithromycin, and prednisone. Respiratory status improved and he was back to his baseline. He is discharged home to continue tamiflu, azithromycin, and prednisone. He is to follow up with his PCP in 2-3 days. HPI Initial Comments: Mr. Guillory is a 79-year-old male with a medical history significant for COPD , diastolic dysfunction, prostate cancer, sleep-related hypoxia, and prior history of tobacco use who presented to the ED with complaints of shortness of breath. Patient and daughter at bedside report that patient was in his normal self around 8 PM last night. Patient reports that he woke up this morning with shortness of breath and productive cough with clear sputum production. Reports the cough is new. Also reports shaking chills and feeling febrile. He reports that he was wheezing and had respiratory distress. States that he could not take a few steps without stopping to catch his breath. He reports chest pain with coughing. Reports that he had nausea this morning but did not throw up. Reports that he had his flu shot this year. Denies any sick contacts besides being in the eye clinic on . He denies headache, diarrhea, constipation , dysuria, materia, edema, PND, orthopnea, or any other symptoms. Diagnosis: Stroke: No - Discharge Data Discharge Date: 04/11/19 Discharge Disposition: Home, Self-Care 01 Condition: Good - Referral to Home Health Primary Care Physician: Pat Sheppard NP - Discharge Diagnosis/Problem(s) (1) Acute exacerbation of chronic obstructive pulmonary disease (COPD) SNOMED Code(s): 924307873 ICD Code: J44.1 - CHRONIC OBSTRUCTIVE PULMONARY DISEASE W (ACUTE) EXACERBATION Status: Acute Current Visit: No (2) Acute on chronic respiratory failure SNOMED Code(s): 93369486 ICD Code: J96.20 - ACUTE AND CHR RESP FAILURE, UNSP W HYPOXIA OR HYPERCAPNIA Status: Acute Current Visit: No Qualifiers: Respiratory failure complication: hypoxia Qualified Code(s): J96.21 - Acute and chronic respiratory failure with hypoxia (3) Influenza A SNOMED Code(s): 785284707 ICD Code: J10.1 - FLU DUE TO OTH IDENT INFLUENZA VIRUS W OTH RESP MANIFEST Status: Acute Current Visit: No - Discharge Plan *PRESCRIPTION DRUG MONITORING PROGRAM REVIEWED*: Not Applicable *COPY OF PRESCRIPTION DRUG MONITORING REPORT IN PATIENT DIANE: Not Applicable Prescriptions/Med Rec: Azithromycin 250 mg PO DAILY #3 tablet Oseltamivir Phosphate 30 mg PO BID 3 Days #7 capsule Home Medications: Home Meds Albuterol [Proventil Neb Soln] 2.5 mg NEB Q4HR PRN 07/29/15 [History] Budesonide [Pulmicort] 0.5 mg NEB BID 07/29/15 [History] Formoterol [Perforomist] 20 mcg NEB BID 07/29/15 [History] Ascorbate Calcium [Vitamin C] 500 mg PO DAILY 07/30/15 [History] Albuterol [Ventolin HFA] 2 puff .XX Q4H 01/15/19 [History] Finasteride [Proscar] 5 mg PO .SUPPER 01/15/19 [History] Tamsulosin [Flomax] 0.4 mg PO .SUPPER 01/15/19 [History] Tofacitinib Citrate [Xeljanz Xr] 11 mg PO BEDTIME 01/15/19 [History] Umeclidinium [place] [Incruse Ellipta*] 1 puff INH DAILY 01/15/19 [History] Zinc Gluconate [Zinc] 50 mg PO DAILY 01/15/19 [History] predniSONE [Prednisone] 5 mg PO DAILY 3 Days #3 tablet 01/24/19 [Rx] Calcium Carbonate/Vitamin D3 [Calcium 600-Vit D3 500 Softgel] 2 each PO DAILY [History] Roflumilast [Daliresp] 500 mcg PO DAILY 04/09/19 [History] Azithromycin 250 mg PO DAILY #3 tablet 04/11/19 [Rx] Oseltamivir Phosphate 30 mg PO BID 3 Days #7 capsule 04/11/19 [Rx] Patient Handouts: Influenza, Adult, [id number], Oseltamivir capsules Referrals: Pat Sheppard, [facility] [Primary Care Provider] - - Discharge Summary/Plan Comment DC Time >30 min.: No - General Info Date of Service: 04/11/19 Admission Dx/Problem (Free Text: Admission Diagnosis/Problem Admission Diagnosis/Problem COPD with acute lower respiratory infection Subjective Update: Reports that shortness of breath is resolved. Still has some cough with clear sputum production but improved compared to time of presentation. . Denies fevers , chills, chest pain, n/v/d/c, dysuria, or any other new symptoms. - Patient Data Vitals - Most Recent: Last Vital Signs Temp 99.2 F 04/11/19 08:06 Pulse 81 04/11/19 08:06 Resp 20 04/11/19 08:06 BP 125/72 04/11/19 08:06 Pulse Ox 95 04/11/19 08:06 Weight - Most Recent: 173 lb 3.2 oz I&O - Last 24 hours: Intake & Output 04/10/19 04/11/19 04/11/19 22:59 06:59 14:59 Intake Total 2470 200 200 Output Total 675 550 Balance 1795 -350 200 TARIQ Results - Last 24 hrs: Microbiology 04/09/19 12:55 Aerobic Blood Culture - Preliminary Blood NO GROWTH AFTER 1 DAY Anaerobic Blood Culture - Preliminary NO GROWTH AFTER 1 DAY Med Orders - Current: Current Medications Acetaminophen (Tylenol) 650 mg PO Q4H PRN PRN Reason: Pain (mild 1-3) Albuterol (Proventil Neb Soln) 2.5 mg NEB Q2H PRN PRN Reason: shortness of breath/wheezing Albuterol/Ipratropium (Duoneb 3.0-0.5 Mg/3 Ml) 3 ml NEB Q4HRRT [facility] Last Admin: 04/11/19 08:08 Dose: Not Given Budesonide (Pulmicort) 0.5 mg NEB BID [facility] Last Admin: 04/11/19 10:17 Dose: Not Given Enoxaparin Sodium (Lovenox) 40 mg SUBCUT DAILY [facility] Last Admin: 04/11/19 09:51 Dose: 40 mg Finasteride (Proscar) 5 mg PO ACDINNER [facility] Last Admin: 04/10/19 18:02 Dose: 5 mg Zinc 50 Mg Own Med () 0 mg PO DAILY [facility] Last Admin: 04/11/19 09:52 Dose: 50 mg Incruse Ellipta 62.5 (Mcg Own Med) 0 each INH DAILY [facility] Last Admin: 04/11/19 09:54 Dose: 1 each Calcium 1200 Mg/ Vit D3 5000 Units Own Med 0 each PO DAILY [facility] Last Admin: 04/11/19 09:52 Dose: 1 each Perforomist 20 Mcg/2 (Ml Own Med) 0 mcg NEB BIDRT [facility] Last Admin: 04/11/19 07:58 Dose: 20 mcg Roflumilast [ Daliresp] 500 Mcg Pt Own Med 500 mcg PO DAILY [facility] Last Admin: 04/11/19 09:52 Dose: 500 mcg Oseltamivir Phosphate (Tamiflu) 30 mg PO BID [facility] Stop: 04/14/19 21:01 Last Admin: 04/11/19 09:51 Dose: 30 mg Polyethylene Glycol (Miralax) 17 gm PO DAILY PRN PRN Reason: Constipation Prednisone (Prednisone) 40 mg PO DAILY [facility] Stop: 04/14/19 15:16 Last Admin: 04/11/19 09:51 Dose: 40 mg Sodium Chloride (Saline Flush) 10 ml FLUSH ASDIRECTED PRN PRN Reason: Keep Vein Open Last Admin: 04/11/19 09:54 Dose: 10 ml Tamsulosin HCl (Flomax) 0.4 mg PO ACDINNER [facility] Last Admin: 04/10/19 18:02 Dose: 0.4 mg Discontinued Medications Acetaminophen (Tylenol) 650 mg PO NOW ONE Stop: 04/09/19 15:19 Last Admin: 04/09/19 15:39 Dose: 650 mg Albuterol (Proventil Neb Soln) 2.5 mg NEB Q4HR PRN PRN Reason: Dyspnea Albuterol/Ipratropium (Duoneb 3.0-0.5 Mg/3 Ml) 3 ml NEB ONETIME ONE Stop: 04/09/19 13:04 Last Admin: 04/09/19 13:13 Dose: 3 ml Albuterol/Ipratropium (Duoneb 3.0-0.5 Mg/3 Ml) 3 ml NEB Q4H [facility] Last Admin: 04/10/19 07:18 Dose: 3 ml Azithromycin (Zithromax) 500 mg PO ONETIME ONE Stop: 04/09/19 15:11 Last Admin: 04/09/19 15:40 Dose: 500 mg Budesonide (Pulmicort) 0.5 mg NEB BID [facility] Calcium Carbonate (Calcium Carbonate/Vitamin D 1250 Mg-200 Unit) 2 tab PO DAILY [facility] Finasteride (Proscar) 5 mg PO ACDINNER [facility] Methylprednisolone Sodium Succinate (Solu-Medrol) 125 mg IVPUSH ONETIME ONE Stop: 04/09/19 13:36 Last Admin: 04/09/19 14:08 Dose: 125 mg Perforomist 20 Mcg/2 (Ml Own Med) 0 mcg NEB BID [facility] Last Admin: 04/09/19 20:16 Dose: 20 mcg Non-Formulary Medication (Tofacitinib Citrate [Xeljanz Xr]) 11 mg PO BEDTIME [facility] Non-Formulary Medication (Umeclidinium [place] [Incruse Ellipta*]) 1 puff INH DAILY [facility] Oseltamivir Phosphate (Tamiflu) 75 mg PO ONETIME ONE Stop: 04/09/19 13:36 Last Admin: 04/09/19 14:07 Dose: 75 mg Oseltamivir Phosphate (Tamiflu) 75 mg PO DAILY [facility] Stop: 04/14/19 09:01 Last Admin: 04/10/19 09:11 Dose: 75 mg Patient Own Medication (Ptom) each PO DAILY [facility] Tamsulosin HCl (Flomax) 0.4 mg PO ACDINNER [facility] - Exam General: Reports: Alert, Oriented, Cooperative HEENT: Reports: Pupils Equal, Pupils Reactive, Mucous Membr. Moist/[place] Neck: Reports: Supple Lungs: Reports: Normal Respiratory Effort, Wheezing Cardiovascular: Reports: Regular Rate, Regular Rhythm Extremities: Normal Inspection, No Pedal Edema Skin: Reports: Warm, Dry, Intact Neurological: Reports: No New Focal Deficit Psy/Mental Status: Reports: Alert, Normal Affect, Normal Mood
[2019-04-11 13:06] VITALS: BP 124/71; PULSE 87
== END 2019-04-11 13:30 | disposition home or self-care (01) ==
LOC: DL.ED 11:09 → DL.MS 13:44
PROVIDERS: ADMIT Internal Medicine; ATTEND Internal Medicine
DX: J44.1 Chronic obstructive pulmonary disease with (acute) exacerbation (principal); J96.21 Acute and chronic respiratory failure with hypoxia; J10.1 Influenza due to other identified influenza virus with other respiratory manifestations; N40.0 Benign prostatic hyperplasia without lower urinary tract symptoms; M06.9 Rheumatoid arthritis, unspecified; Z87.891 Personal history of nicotine dependence; Z79.899 Other long term (current) drug therapy
CPT/HCPCS: 36415; 71046; 80053; 83605; 85025; 87040; 87804; 94640; 99284; 99285-25; A9270-GY; J1650; J2930; J7620-GY

== ENCOUNTER 2020-03-17 15:09 | Emergency (ER) | payer MEDICARE, BC ==
[2020-03-17 15:20] VITALS: BP 175/76; PULSE 100
--- NOTE | 2020-03-17 15:52 | EDM.PDOC ---
Scribed by Julisa Contreras 03/17/20 1531 for Michale Roblero MD ED HPI GENERAL MEDICAL PROBLEM - General Chief Complaint: Genitourinary Problem Stated Complaint: DECALFITOR IS PLUGGED UP Time Seen by Provider: 03/17/20 15:18 Source of Information: Reports: Patient, RN, RN Notes Reviewed History Limitations: Reports: No Limitations - History of Present Illness INITIAL COMMENTS - FREE TEXT/NARRATIVE: Patient presents to ED by POV with complaint that his Chap[place] catheter is plugged. Patient states that he had it placed Wednesday. Patient states that he noticed it was leaking this afternoon. Patient denies pain, fever, chills, flank pain, N/V or any other symptoms. Onset: Today Duration: Constant Quality: Reports: Other (plugged) Severity: Severe Improves with: Reports: None Worsens with: Reports: None Associated Symptoms: Reports: No Other Symptoms - Related Data Allergies Allergy/AdvReac Type Severity Reaction Status Date / Time No Known Allergies Allergy Verified 03/17/20 15:18 Home Meds: Home Meds Albuterol [Proventil Neb Soln] 2.5 mg NEB Q4HR PRN 07/29/15 [History] Budesonide [Pulmicort] 0.5 mg NEB BID 07/29/15 [History] Formoterol [Perforomist] 20 mcg NEB BID 07/29/15 [History] Ascorbate Calcium [Vitamin C] 500 mg PO DAILY 07/30/15 [History] Albuterol [Ventolin HFA] 2 puff .XX Q4H 01/15/19 [History] Finasteride [Proscar] 5 mg PO .SUPPER 01/15/19 [History] Tamsulosin [Flomax] 0.4 mg PO .SUPPER 01/15/19 [History] Tofacitinib Citrate [Xeljanz Xr] 11 mg PO BEDTIME 01/15/19 [History] Umeclidinium [place] [Incruse Ellipta*] 1 puff INH DAILY 01/15/19 [History] Zinc Gluconate [Zinc] 50 mg PO DAILY 01/15/19 [History] predniSONE [Prednisone] 5 mg PO DAILY 3 Days #3 tablet 01/24/19 [Rx] Calcium Carbonate/Vitamin D3 [Calcium 600-Vit D3 500 Softgel] 2 each PO DAILY 04/09/19 [History] Roflumilast [Daliresp] 500 mcg PO DAILY 04/09/19 [History] Azithromycin 250 mg PO DAILY #3 tablet 04/11/19 [Rx] Oseltamivir Phosphate 30 mg PO BID 3 Days #7 capsule 04/11/19 [Rx] Past Medical History Cardiovascular History: Reports: Other (See Below) Other Cardiovascular History: left ventricle "slow" Respiratory History: Reports: COPD Genitourinary History: Reports: BPH Musculoskeletal History: Reports: RA Immunologic History: Reports: Immunosuppression Other Immunologic History: RA medications Oncologic (Cancer) History: Reports: Prostate - Infectious Disease History Infectious Disease History: Reports: None - Past Surgical History Cardiovascular Surgical History: Reports: None Respiratory Surgical History: Reports: None GI Surgical History: Reports: Hernia, Inguinal Dermatological Surgical History: Reports: Skin Biopsy Social & Family History - Family History Family Medical History: No Pertinent Family History - Caffeine Use Caffeine Use: Reports: Coffee ED ROS GENERAL - Review of Systems Review Of Systems: Comprehensive ROS is negative, except as noted in HPI. ED EXAM, RENAL/ - Physical Exam Exam: See Below Exam Limited By: No Limitations General Appearance: Alert, No Apparent Distress, Obese Respiratory/Chest: No Respiratory Distress GI/Abdominal: Normal Bowel Sounds, Soft, Non-Tender, No Distention. No: Guarding, Rigid, Rebound (Male) Exam: Other (Indwelling Chaparro catheter with leaking at penile meatus.) Neurological: Alert, Oriented, No Motor/Sensory Deficits Psychiatric: Normal Mood Skin Exam: Warm, Dry, Intact, Normal Color, No Rash Course - Vital Signs Last Recorded V/S: Last Vital Signs Temp 98.6 F 03/17/20 15:18 Pulse 100 03/17/20 15:18 Resp 16 03/17/20 15:18 BP 175/76 H 03/17/20 15:18 Pulse Ox 99 03/17/20 15:18 - Orders/Labs/Meds Orders: Active Orders 24 hr Category Date Time Status Bladder Irrigation [RC] ONETIME Care 03/17/20 15:31 Active Urinary Catheter Assessment [RC] ASDIRECTED Care 03/17/20 15:31 Active UA RFX TARIQ AND CULT IF INDIC [URIN] Stat Lab 03/17/20 15:31 Ordered - Re-Assessments/Exams Free Text/Narrative Re-Assessment/Exam: 03/17/20 15:31 Chaparro catheter irrigated by RN. Departure - Departure Time of Disposition: 15:51 Disposition: Home, Self-Care 01 Condition: Good Clinical Impression: Obstructed Chaparro catheter Qualifiers: Encounter type: initial encounter Qualified Code(s): T83.091A - Other mechanical complication of indwelling urethral catheter, initial encounter - Discharge Information *PRESCRIPTION DRUG MONITORING PROGRAM REVIEWED*: Not Applicable *COPY OF PRESCRIPTION DRUG MONITORING REPORT IN PATIENT DIANE: Not Applicable Instructions: Indwelling Urinary Catheter Care, Adult Forms: ED Department Discharge Additional Instructions: Follow up with your doctor tomorrow as planned. Sepsis Event Note (ED) - Focused Exam Vital Signs: Vital Signs Temp Pulse Resp BP Pulse Ox 03/17/20 15:18 98.6 F 100 16 175/76 H 99 - My Orders Last 24 Hours: My Active Orders 03/17/20 15:31 Bladder Irrigation [RC] ONETIME Urinary Catheter Assessment [RC] ASDIRECTED UA RFX TARIQ AND CULT IF INDIC [URIN] Stat - Assessment/Plan Last 24 Hours: My Active Orders 03/17/20 15:31 Bladder Irrigation [RC] ONETIME Urinary Catheter Assessment [RC] ASDIRECTED UA RFX TARIQ AND CULT IF INDIC [URIN] Stat I have read and agree with the documentation that has been completed regarding this visit. By signing this record, I attest that the documentation was completed in my physical presence and is an accurate record of the encounter.
== END 2020-03-17 15:55 | disposition home or self-care (01) ==
LOC: DL.ED 15:09
DX: T83.098A Other mechanical complication of other urinary catheter, initial encounter (principal); J44.9 Chronic obstructive pulmonary disease, unspecified; Z79.899 Other long term (current) drug therapy
CPT/HCPCS: 99283

== ENCOUNTER 2021-05-14 07:28 | Day surgery (SDC) | payer MEDICARE, BC ==
[2021-05-14] MEDS ORDERED: Dexamethasone 4 MG/ML SDV IV ONE (07:29)
[2021-05-14] MEDS ORDERED: Midazolam 1 MG/ML 2 ML SDV IV ONE (07:29)
[2021-05-14] MEDS ORDERED: Sodium Chloride 0.9% 10 ML Syringe IV ONE (07:29)
[2021-05-14] MEDS ORDERED: Acetaminophen/Codeine 300-30 MG Tab PO PRN (07:30)
[2021-05-14] MEDS ORDERED: Moxifloxacin 0.5% Ophth Soln 3 ML Bottle EYELF ONE (07:30)
[2021-05-14] MEDS ORDERED: Sodium Chloride 0.9% 10 ML Syringe FLUSH PRN (07:30)
[2021-05-14] MEDS ORDERED: Tropicamide 1% Ophth Soln 15 ML Bottle EYELF ONE (07:30)
[2021-05-14] MEDS ORDERED: Cataract Ophth Solution EYELF ONE (07:30)
[2021-05-14] MEDS ORDERED: Ondansetron 4 MG/2 ML SDV IVPUSH PRN (07:30)
[2021-05-14] MEDS ORDERED: Timolol Maleate 0.5% Ophth Soln 5 ML Bottle EYELF ONE (07:30)
[2021-05-14] MEDS ORDERED: Acetaminophen 325 MG Tab PO PRN (07:30)
[2021-05-14] MEDS ORDERED: Proparacaine 0.5% Ophth Soln 15 ML Bottle EYELF ONE (07:30)
[2021-05-14] MEDS ORDERED: Povidone-Iodine 5% Sterile Ophth Soln 30 ML Bottle EYELF ONE ×2 (07:30→09:06)
[2021-05-14] MEDS ORDERED: Phenylephrine 10% Ophth Soln 5 ML Bot EYELF ONE (07:30)
[2021-05-14] MEDS ORDERED: Tetracaine HCl/PF 0.5% 4 ML Bottle EYELF ONE (09:05)
[2021-05-14] MEDS ORDERED: Lidocaine 1% 30 ML SDV ONE (09:06)
[2021-05-14] MEDS ORDERED: Apraclonidine 0.5% Ophth Soln 5 ML Bot EYELF ONE (09:06)
[2021-05-14] MEDS ORDERED: Dexamethasone/Neomycin/Polymyxin B Ophth Oint 3.5 GM Tube EYELF ONE (09:07)
[2021-05-14] MEDS ORDERED: Diclofenac Sodium 0.1% Ophth Soln 5 ML Bottle EYELF ONE (09:07)
[2021-05-14] MEDS ORDERED: Chondroitin Sulfate/Hyaluronate Sodium Ophth Inj 0.5 ML Syringe IOCULAR ONE ×2 (09:08)
[2021-05-14] MEDS ORDERED: Vancomycin 500 MG SDV EYELF ONE (09:08)
[2021-05-14] MEDS ORDERED: Balanced Salt Solution Ophth Irrig 500 ML Bottle IOCULAR ONE (09:08)
[2021-05-14 12:38] VITALS: BP 139/64; PULSE 71
== END 2021-05-14 10:19 | disposition home or self-care (01) ==
LOC: DL.SDS 07:28
PROVIDERS: ATTEND Ophthalmology
DX: H25.812 Combined forms of age-related cataract, left eye (principal); J44.9 Chronic obstructive pulmonary disease, unspecified; C61 Malignant neoplasm of prostate; M06.9 Rheumatoid arthritis, unspecified; E78.5 Hyperlipidemia, unspecified; I25.10 Atherosclerotic heart disease of native coronary artery without angina pectoris; E66.9 Obesity, unspecified; F17.210 Nicotine dependence, cigarettes, uncomplicated; Z79.51 Long term (current) use of inhaled steroids; Z79.899 Other long term (current) drug therapy; Z79.52 Long term (current) use of systemic steroids; Z98.890 Other specified postprocedural states; Z68.36 Body mass index [BMI] 36.0-36.9, adult
CPT/HCPCS: 66984; A9270; J1100; J2250; J3370; J3490

== ENCOUNTER 2021-05-28 06:49 | Day surgery (SDC) | payer MEDICARE, BC ==
[2021-05-28] MEDS ORDERED: Dexamethasone 4 MG/ML SDV IV ONE (06:50)
[2021-05-28] MEDS ORDERED: Midazolam 1 MG/ML 2 ML SDV IV ONE (06:50)
[2021-05-28] MEDS ORDERED: Sodium Chloride 0.9% 10 ML Syringe IV ONE (06:50)
[2021-05-28] MEDS ORDERED: Timolol Maleate 0.5% Ophth Soln 5 ML Bottle EYERT ONE (07:00)
[2021-05-28] MEDS ORDERED: Moxifloxacin 0.5% Ophth Soln 3 ML Bottle EYERT ONE (07:00)
[2021-05-28] MEDS ORDERED: Ondansetron 4 MG/2 ML SDV IVPUSH PRN (07:00)
[2021-05-28] MEDS ORDERED: Phenylephrine 10% Ophth Soln 5 ML Bot EYERT ONE (07:00)
[2021-05-28] MEDS ORDERED: Proparacaine 0.5% Ophth Soln 15 ML Bottle EYERT ONE (07:00)
[2021-05-28] MEDS ORDERED: Acetaminophen 325 MG Tab PO PRN (07:00)
[2021-05-28] MEDS ORDERED: Cataract Ophth Solution EYERT ONE (07:00)
[2021-05-28] MEDS ORDERED: Tropicamide 1% Ophth Soln 15 ML Bottle EYERT ONE (07:00)
[2021-05-28] MEDS ORDERED: Sodium Chloride 0.9% 10 ML Syringe FLUSH PRN (07:00)
[2021-05-28] MEDS ORDERED: Povidone-Iodine 5% Sterile Ophth Soln 30 ML Bottle EYERT ONE ×2 (07:00→08:10)
[2021-05-28] MEDS ORDERED: Acetaminophen/Codeine 300-30 MG Tab PO PRN (07:00)
[2021-05-28] MEDS ORDERED: Lidocaine 1% 30 ML SDV ONE (08:10)
[2021-05-28] MEDS ORDERED: Apraclonidine 0.5% Ophth Soln 5 ML Bot EYERT ONE (08:10)
[2021-05-28] MEDS ORDERED: Tetracaine HCl/PF 0.5% 4 ML Bottle EYERT ONE (08:10)
[2021-05-28] MEDS ORDERED: Dexamethasone/Neomycin/Polymyxin B Ophth Oint 3.5 GM Tube EYERT ONE (08:11)
[2021-05-28] MEDS ORDERED: Vancomycin 500 MG SDV EYERT ONE (08:11)
[2021-05-28] MEDS ORDERED: Balanced Salt Solution Ophth Irrig 500 ML Bottle IOCULAR ONE (08:11)
[2021-05-28] MEDS ORDERED: Diclofenac Sodium 0.1% Ophth Soln 5 ML Bottle EYERT ONE (08:11)
[2021-05-28] MEDS ORDERED: Chondroitin Sulfate/Hyaluronate Sodium Ophth Inj 0.5 ML Syringe IOCULAR ONE (08:12)
[2021-05-28 11:20] VITALS: BP 143/62; PULSE 79
== END 2021-05-28 09:23 | disposition home or self-care (01) ==
LOC: DL.SDS 06:49
PROVIDERS: ATTEND Ophthalmology
DX: H25.811 Combined forms of age-related cataract, right eye (principal); F17.210 Nicotine dependence, cigarettes, uncomplicated; J44.9 Chronic obstructive pulmonary disease, unspecified; M06.9 Rheumatoid arthritis, unspecified; C61 Malignant neoplasm of prostate; Z98.890 Other specified postprocedural states; Z79.51 Long term (current) use of inhaled steroids; Z79.899 Other long term (current) drug therapy
CPT/HCPCS: 00142; A9270-GY; J1100; J2250; J3370; J3490; V2632

== ENCOUNTER 2022-10-14 17:21 | Emergency (ER) | payer MEDICARE, BC ==
[2022-10-14] MEDS ORDERED: Sodium Chloride 0.9% 10 ML Syringe FLUSH PRN (17:49)
[2022-10-14 18:09] LABS: BASOPHILS PERCENT AUTO 0.2 % (0.0-1.0); EOSINOPHILS PERCENT AUTO 0.5 % (1.0-3.0); HEMATOCRIT 35.6 % (40.0-54.0); LYMPHOCYTES PERCENT AUTO 8.2 % (20.5-50.1); MEAN CORPUSCULAR HEMOGLOBIN 33.4 pg (27.0-34.0); MEAN CORPUSCULAR HGB CONC 33.7 g/dL (33.0-35.0); MEAN CORPUSCULAR VOLUME 99.2 fL (80-100); MONOCYTES PERCENT AUTO 4.8 % (2-8); NEUTROPHILS PERCENT AUTO 86.3 % (42.2-75.2); PLATELET COUNT,PLT 273 10^3/uL (150-450); RED BLOOD CELL COUNT 3.59 10^6/uL (4.6-6.2); WHITE BLOOD CELL COUNT,WBC 10.7 10^3/uL (5.0-10.0)
[2022-10-14 18:25] LABS: A/G RATIO 0.8; ALANINE AMINOTRANSFERASE,ALT 48 U/L (16-63); ALBUMIN 3.4 g/dL (3.4-5.0); ALKALINE PHOSPHATASE 112 U/L (46-116); AMYLASE 55 U/L (25-115); ANION GAP 13.2 mEq/L (7-13); ASPARTATE AMNIOTRANSFERASE,AST 23 U/L (15-37); BILIRUBIN TOTAL 0.3 mg/dL (0.2-1.0); BLOOD UREA NITROGEN,BUN 15 mg/dL (7-18); BUN/CREATININE RATIO 13.4 (No establ ref range); CALCIUM 9.5 mg/dL (8.5-10.1); CARBON DIOXIDE,CO2 28 mmol/L (21-32); CHLORIDE,CL 101 mmol/L (98-107); CREATININE 1.12 mg/dL (0.70-1.30); EST CRCL DRUG DOSING (CG) 40.63 mL/min; GLUCOSE RANDOM 144 mg/dL (70-99); LIPASE 39 U/L (16-77); POTASSIUM,K 4.2 mmol/L (3.5-5.1); PROTEIN TOTAL,TP 7.6 g/dL (6.4-8.2); SODIUM,NA 138 mmol/L (136-145)
[2022-10-14 18:26] LABS: ESTIMATED GFR 66 mL/min (>=60)
[2022-10-14 18:29] LABS: INR 0.9 (0.9-1.2); PROTHROMBIN TIME 9.4 SEC (9.0-12.0)
[2022-10-14 18:33] LABS: LACTIC ACID 2.2 mmol/L (0.4-2.0)
[2022-10-14] MEDS ORDERED: Iopamidol 612 MG/ML 100 ML Bottle IVPUSH ONE (18:59)
[2022-10-14] MEDS ORDERED: fentaNYL 100 MCG/2 ML SDV IVPUSH ONE (19:58)
[2022-10-14] MEDS ORDERED: Ondansetron 4 MG/2 ML SDV IVPUSH ONE (20:00)
[2022-10-14] MEDS ORDERED: Sodium Chloride 0.9% 1,000 ML IV ONE (20:11)
[2022-10-14] MEDS ORDERED: Piperacillin/Tazobactam 3.375 GM in Sodium Chloride 0.9% 100 ML IV ONE (20:17)
[2022-10-14 21:10] VITALS: BP 166/95; PULSE 92
== END 2022-10-14 21:05 ==
LOC: DL.ED 17:21
DX: K35.80 Unspecified acute appendicitis (principal); K80.20 Calculus of gallbladder without cholecystitis without obstruction; J44.9 Chronic obstructive pulmonary disease, unspecified; M06.9 Rheumatoid arthritis, unspecified
CPT/HCPCS: 36415; 51702; 74178; 80053; 82150; 83605; 83690; 84145; 85025; 85610; 86140; 96365; 96375; 99284; 99284-25; J2405; J2543; J3010; J3490; J7030; Q9967

== ENCOUNTER 2022-11-03 12:25 | Emergency (ER) | payer MEDICARE, BC ==
[2022-11-03] MEDS ORDERED: Iopamidol 612 MG/ML 100 ML Bottle IVPUSH ONE (12:54)
[2022-11-03 13:02] LABS: BASOPHILS PERCENT AUTO 0.4 % (0.0-1.0); EOSINOPHILS PERCENT AUTO 1.2 % (1.0-3.0); HEMATOCRIT 36.7 % (40.0-54.0); HEMOGLOBIN 12.3 g/dL (14.0-18.0); MEAN CORPUSCULAR HEMOGLOBIN 32.5 pg (27.0-34.0); MEAN CORPUSCULAR HGB CONC 33.5 g/dL (33.0-35.0); MEAN CORPUSCULAR VOLUME 97.1 fL (80-100); MONOCYTES PERCENT AUTO 10.2 % (2-8); NEUTROPHILS PERCENT AUTO 68.2 % (42.2-75.2); PLATELET COUNT,PLT 326 10^3/uL (150-450); RED BLOOD CELL COUNT 3.78 10^6/uL (4.6-6.2); WHITE BLOOD CELL COUNT,WBC 5.7 10^3/uL (5.0-10.0)
[2022-11-03 13:09] VITALS: BP 165/81; PULSE 89
[2022-11-03 13:22] LABS: ALBUMIN 3.3 g/dL (3.4-5.0); ANION GAP 12.4 mEq/L (7-13); BILIRUBIN TOTAL 0.3 mg/dL (0.2-1.0); BUN/CREATININE RATIO 13.2 (No establ ref range); C-REACTIVE PROTEIN 0.85 ng/dL (<=0.30); CALCIUM 9.7 mg/dL (8.5-10.1); CREATININE 1.14 mg/dL (0.70-1.30); EST CRCL DRUG DOSING (CG) 39.91 mL/min; POTASSIUM,K 3.4 mmol/L (3.5-5.1); PROTEIN TOTAL,TP 7.5 g/dL (6.4-8.2)
[2022-11-03 13:23] LABS: A/G RATIO 0.79
[2022-11-03 14:53] LABS: APPEARANCE,URINE CLEAR (CLEAR); BILIRUBIN,URINE NEGATIVE (NEGATIVE); COLOR,URINE YELLOW (YELLOW); GLUCOSE,URINE NEGATIVE (NEGATIVE); KETONES,URINE NEGATIVE (NEGATIVE); LEUKOCYTE ESTERASE,URINE NEGATIVE (NEGATIVE); NITRITE,URINE NEGATIVE (NEGATIVE); OCCULT BLOOD,URINE NEGATIVE (NEGATIVE); PROTEIN,URINE NEGATIVE (NEGATIVE); UROBILINOGEN,URINE 0.2 mg/dL (0.2-1.0)
== END 2022-11-03 15:46 | disposition home or self-care (01) ==
LOC: DL.ED 12:25
DX: I71.43 Infrarenal abdominal aortic aneurysm, without rupture (principal); K57.90 Diverticulosis of intestine, part unspecified, without perforation or abscess without bleeding; K76.0 Fatty (change of) liver, not elsewhere classified; N30.00 Acute cystitis without hematuria; E27.8 Other specified disorders of adrenal gland; Z90.49 Acquired absence of other specified parts of digestive tract; J44.9 Chronic obstructive pulmonary disease, unspecified; Z87.891 Personal history of nicotine dependence; Z79.899 Other long term (current) drug therapy
CPT/HCPCS: 36415; 74177; 80053; 81003; 83605; 85025; 86140; 87040; 99284; Q9967

== ENCOUNTER 2024-01-23 21:57 | Emergency (ER) | payer MEDICARE, BC ==
[2024-01-23 22:29] LABS: APPEARANCE,URINE CLEAR (CLEAR); BILIRUBIN,URINE NEGATIVE (NEGATIVE); COLOR,URINE YELLOW (YELLOW); GLUCOSE,URINE NEGATIVE (NEGATIVE); KETONES,URINE NEGATIVE (NEGATIVE); LEUKOCYTE ESTERASE,URINE NEGATIVE (NEGATIVE); NITRITE,URINE NEGATIVE (NEGATIVE); OCCULT BLOOD,URINE NEGATIVE (NEGATIVE); PROTEIN,URINE NEGATIVE (NEGATIVE); UROBILINOGEN,URINE 0.2 mg/dL (0.2-1.0)
[2024-01-23 23:36] VITALS: BP 155/76; PULSE 75
== END 2024-01-23 23:42 | disposition home or self-care (01) ==
LOC: DL.ED 21:57
DX: M54.9 Dorsalgia, unspecified (principal); J44.9 Chronic obstructive pulmonary disease, unspecified; Z87.891 Personal history of nicotine dependence; Z90.49 Acquired absence of other specified parts of digestive tract; Z86.16 Personal history of COVID-19; Z79.899 Other long term (current) drug therapy
CPT/HCPCS: 74176; 81003; 99284

== ENCOUNTER 2024-10-09 11:10 | Emergency (ER) | payer MEDICARE, BC ==
[2024-10-09] MEDS: methylPREDNISolone Sodium Succinate 125 MG/2 ML SDV IVPUSH ONE (11:56)
[2024-10-09] MEDS: Take Home: Amoxicillin/Clavulanate K 875-125 MG Tab, 6 Tab Pack PO ONE (12:30)
[2024-10-09] MEDS: Take Home: Albuterol/Ipratropium 3.0-0.5 MG/3 ML Neb Soln, 4 Neb Pack NEB ONE (12:30)
[2024-10-09 14:07] VITALS: BP 146/59; PULSE 78
== END 2024-10-09 12:41 | disposition home or self-care (01) ==
LOC: DL.ED 11:10
DX: J44.1 Chronic obstructive pulmonary disease with (acute) exacerbation (principal); J44.0 Chronic obstructive pulmonary disease with (acute) lower respiratory infection; J18.9 Pneumonia, unspecified organism; Z79.899 Other long term (current) drug therapy; Z86.16 Personal history of COVID-19
CPT/HCPCS: 71045; 94010; 94640; 96374; 99285; A9270; J2919; 99284